=== PATIENT | female | born 1995 | race Caucasian/White ===

== ENCOUNTER → 2016-11-25 | Outpatient (CLI) | payer OTHER ==
[2016-11-25 18:23] LABS: BASO # 0.1 K/mm3 (0.0-0.2); BASO % 0.5 % (0.0-1.0); EOS # 0.2 K/mm3 (0.0-0.50); EOS % 1.7 % (0.0-3.0); LARGE UNSTAINED CELL # 0.2 K/mm3 (0.0-0.4); LARGE UNSTAINED CELL % 1.6 % (0.0-4.0); LYMPH # 2.6 K/mm3 (1.5-6.5); LYMPH % 21.4 % (24.0-44.0); MEAN CORPUSCULAR HEMOGLOBIN 29.5 pg (27.0-33.0); MEAN CORPUSCULAR HGB CONC 33.9 g/dl (32.0-36.5); MEAN CORPUSCULAR VOLUME 87.1 fl (80.0-96.0); MONO # 0.7 K/mm3 (0.0-0.8); MONO % 5.9 % (0.0-5.0); NEUTROPHILS # 7.9 K/mm3 (1.8-7.7); NEUTROPHILS % 68.9 % (36.0-66.0); PLATELET COUNT, AUTOMATED 298 k/mm3 (150-450); RED CELL DISTRIBUTION WIDTH 12.1 % (11.5-14.5); WHITE BLOOD COUNT 11.4 K/mm3 (4.0-10.0)
[2016-11-26 13:25] LABS: HBsAg Prenatal NEGATIVE (NEGATIVE)
== END ==
LOC: M SMT 13:35
PROVIDERS: ATTEND Obstetrics & Gynecology
DX: Z34.81 Encounter for supervision of other normal pregnancy, first trimester (principal)

== ENCOUNTER → 2017-01-27 | Outpatient (CLI) | payer OTHER | LOC: M SMT 15:21 | PROVIDERS: ATTEND Advanced Practice Midwife | DX: Z31.438 Encounter for other genetic testing of female for procreative management (principal) ==

== ENCOUNTER → 2017-02-10 | Outpatient (CLI) | payer OTHER ==
[~2017-02-10] MED LIST: ACET50TA PO; IBUP-1114 PO; PRENTAB9 PO
--- NOTE | 2017-02-11 04:37 | REP ---
Clinical: Anatomical evaluation. Comparison: None . Findings: Examination demonstrates a single live intrauterine in cephalic presentation. motion is identified by technologist. Placenta is noted anteriorly and grade zero without evidence for placenta previa or abruption. Amniotic fluid volume is normal. Cervix measures 5.3 cm in length and appears closed. No evidence for nuchal cord. Gestational age by LMP 18 weeks 2 days with LESLI 07/12/2017 . Gestational age by current measurements 19 weeks 2 days with LESLI 07/05/2017 . FHR equals 141 beats per minute. BPD 4.5 cm 19 weeks 3 days HC 16.2 cm 19 weeks 0 days AC 14.7 cm 20 weeks 0 days FL 2.8 cm 18 weeks 4 days HL 3.0 cm 19 weeks 5 days HC/AC ratio 1.10 Estimated weight 287 grams ( 88th percentile). Anatomical assessment demonstrates normal structures including cranium, cavum, cerebellum/posterior fossa, facial features, lungs, four-chamber heart/ventricular outflow tracts, diaphragm, stomach, cord insertion/three-vessel cord, kidneys/bladder, spine, and extremities. 2.4 mm right choroid plexus cyst noted. Impression: Single live intrauterine in cephalic presentation demonstrating appropriate interval growth. 2. A 2.4 mm right choroid plexus cyst is appreciated. The remainder of the anatomical assessment is within normal limits. Signed by Everardo Sandoval MD 02/11/2017 04:28 A
== END ==
LOC: M RAD 09:23
PROVIDERS: ATTEND Advanced Practice Midwife
DX: Z36 Encounter for antenatal screening of mother (principal); Z3A.19 19 weeks gestation of pregnancy

== ENCOUNTER → 2017-04-14 | Outpatient (CLI) | payer OTHER ==
[2017-04-14 18:26] LABS: MEAN CORPUSCULAR HEMOGLOBIN 29.9 pg (27.0-33.0); MEAN CORPUSCULAR HGB CONC 33.9 g/dl (32.0-36.5); RED CELL DISTRIBUTION WIDTH 12.8 % (11.5-14.5)
== END ==
LOC: M SMT 13:15
PROVIDERS: ATTEND Advanced Practice Midwife
DX: Z34.82 Encounter for supervision of other normal pregnancy, second trimester (principal)

== ENCOUNTER → 2017-05-08 | Outpatient (REF) | payer OTHER | LOC: M LAB REF 19:30 | PROVIDERS: ATTEND Physician Assistant | DX: J02.9 Acute pharyngitis, unspecified (principal) ==

== ENCOUNTER → 2017-06-16 | Outpatient (REF) | payer OTHER | LOC: M LAB REF 12:44 | PROVIDERS: ATTEND Advanced Practice Midwife | DX: Z34.83 Encounter for supervision of other normal pregnancy, third trimester (principal); Z3A.00 Weeks of gestation of pregnancy not specified ==

== ENCOUNTER → 2017-09-15 | Outpatient (CLI) | payer OTHER | LOC: M RAD 14:38 | DX: Z30.431 Encounter for routine checking of intrauterine contraceptive device (principal) | CPT/HCPCS: 76856 ==

== ENCOUNTER 2017-09-25 06:14 | Day surgery (SDC) | payer OTHER ==
[2017-09-25] MEDS ORDERED: NEOSTIGMINE 10 MG/10 ML VIAL (J2710) (06:15)
[2017-09-25] MEDS ORDERED: LR 1,000 ML IV ×3 (06:30→09:15)
[2017-09-25 06:50] LABS: HEMATOCRIT 38.9 % (36.0-47.0); HEMOGLOBIN 12.7 g/dl (12.0-16.0); MEAN CORPUSCULAR HEMOGLOBIN 27.5 pg (27.0-33.0); MEAN CORPUSCULAR HGB CONC 32.6 g/dl (32.0-36.5); MEAN CORPUSCULAR VOLUME 84.2 fl (80.0-96.0); PLATELET COUNT, AUTOMATED 257 10^3/uL (150-450); RED BLOOD COUNT 4.62 10^6/uL (4.00-5.40); RED CELL DISTRIBUTION WIDTH 12.8 % (11.5-14.5); WHITE BLOOD COUNT 7.6 10^3/uL (4.0-10.0)
[2017-09-25 06:55] LABS: CONTROL LINE HCG INT CTR LINE PRESENT; HCG, SERUM QUALITATIVE NEGATIVE (NEGATIVE)
[2017-09-25] MEDS ORDERED: fentaNYL 250 MCG/5 ML INJECTION (J3010) As Ordered (07:15)
[2017-09-25] MEDS ORDERED: ROCURONIUM BROMIDE 50 MG/5 ML VIAL As Ordered (07:15)
[2017-09-25] MEDS ORDERED: PROPOFOL 200 MG/20 ML VIAL As Ordered (07:15)
[2017-09-25] MEDS ORDERED: MIDAZOLAM INJ 2 MG/2 ML VIAL (J2250) As Ordered (07:15)
[2017-09-25] MEDS ORDERED: LIDOCAINE 2% INJ 100 MG/5 ML SDV (FOR ANES.) As Ordered (07:15)
[2017-09-25] MEDS ORDERED: ePHEDrine INJ 50 MG/ML VIAL As Ordered (07:21)
[2017-09-25] MEDS ORDERED: dexameTHASONE 4 MG/ML 1ML VIAL (J1100) As Ordered (07:45)
[2017-09-25] MEDS: BUPIVACAINE HCL 0.25% 30 ML VIAL As Ordered (08:02)
[2017-09-25] MEDS ORDERED: GLYCOPYRROLATE INJ 0.2 MG/ML 2 ML VIAL As Ordered ×2 (08:10→08:11)
[2017-09-25] MEDS ORDERED: NEOSTIGMINE 10 MG/10 ML VIAL (J2710) As Ordered (08:10)
[2017-09-25] MEDS ORDERED: ONDANSETRON 4MG/2ML VIAL (J2405) As Ordered (08:11)
[2017-09-25] MEDS ORDERED: KETOROLAC 60 MG/2 ML VIAL (J1885) As Ordered (08:11)
[2017-09-25] MEDS ORDERED: PERCOCET 5MG/325MG TAB PO (09:15)
[2017-09-25] MEDS ORDERED: METOCLOPRAMIDE INJ 10MG/2ML VIAL (J2765) IV (09:15)
[2017-09-25] MEDS ORDERED: fentaNYL 100 MCG/2 ML INJECTION (J3010) IV (09:15)
[2017-09-25] MEDS ORDERED: ONDANSETRON 4MG/2ML VIAL (J2405) IV (09:15)
[2017-09-25] MEDS ORDERED: MORPHINE 10 MG/ML 1ML VIAL IV (09:15)
== END 2017-09-25 10:50 | disposition home or self-care (01) ==
LOC: M SDC 06:14
DX: T83.32XA Displacement of intrauterine contraceptive device, initial encounter (principal); Y76.2 Prosthetic and other implants, materials and accessory obstetric and gynecological devices associated with adverse incidents
CPT/HCPCS: 49329

== ENCOUNTER → 2019-08-31 | Outpatient (CLI) | payer OTHER ==
[~2019-08-31] MED LIST changes: -ACET50TA PO; +MAPA500T2 PO
== END ==
LOC: M PLALAB 11:17
PROVIDERS: ATTEND Advanced Practice Midwife
DX: O36.80X0 Pregnancy with inconclusive fetal viability, not applicable or unspecified (principal)

== ENCOUNTER → 2019-09-12 | Outpatient (CLI) | payer OTHER ==
--- NOTE | 2019-09-13 02:37 | REP ---
Clinical: Dating and viability. Technique: Transabdominal first trimester obstetrical ultrasound with color Doppler evaluation. Findings: Ultrasound examination demonstrates a single live early intrauterine . CRL of 33 mm corresponds to 10 weeks 1 day gestational age with estimated date of delivery 04/08/2020. heart rate equals 164 bpm. No gross abnormalities are identified. Maternal ovaries are normal in appearance. Impression: Single live early intrauterine at 10 weeks 1 day gestational age. Complete anatomical assessment should be performed at 19-20 weeks.
== END ==
LOC: M WHC 12:49
PROVIDERS: ATTEND Advanced Practice Midwife
DX: O36.80X0 Pregnancy with inconclusive fetal viability, not applicable or unspecified (principal)

== ENCOUNTER → 2019-11-21 | Outpatient (CLI) | payer OTHER ==
--- NOTE | 2019-11-21 11:35 | REP ---
OBSTETRIC SONOGRAPHY: HISTORY: Supervision of for anatomy. FINDINGS: Scanning through the gravid uterus demonstrates a viable single intrauterine gestation in a footling breech lie. motion is observed and heart rate is recorded at 163 beats per minute. An anterior grade 0 placenta is seen without evidence of previa or abruption. Amniotic fluid is subjectively normal. Closed cervical length is 4.7 cm. No extrauterine abnormalities observed. There has been appropriate interval growth. The following anatomic structures are identified and felt to be unremarkable today: cavum, cerebellum and posterior fossa, lungs, right ventricular cardiac outflow tract views, diaphragm, left-sided stomach, abdominal wall cord insertion, three-vessel cord, kidneys and bladder, spine, upper and lower extremities. There is a small choroid plexus cyst in the right lateral ventricle. nose and lips were seen but facial profile is less than optimally seen due to position. In addition, the four-chamber heart and left ventricular outflow tract visualization was less than optimal due to position. Biometry chart: BPD 4.6 cm = 20 weeks 0 days Head circumference 17.6 cm = 20 weeks 1 day Abdominal circumference 15.1 cm = 20 weeks 3 days Femur length 3.3 cm = 20 weeks 2 days Humeral length 3.4 cm = 21 weeks 3 days HC/AC ratio normal 1.16. Cephalic index normal 0.72. Estimated weight 246 grams, 0 pounds 12 ounces, 51st percentile for 20 weeks 1 day. IMPRESSION: Viable single intrauterine gestation at 20 weeks 3 days by today's composite sonographic criteria. Expected gestational age estimate based on prior sonography is 20 weeks 1 day, LESLI by prior sonography April 08, 2020. There is appropriate interval growth. A small choroid plexus cyst is seen in the right lateral ventricle. Face and cardiac structures less than optimally visualized today due to position. Footling breech lie. Electronically Signed by Pal Morgan MD 11/21/2019 03:39 P
== END ==
LOC: M RAD 10:02
PROVIDERS: ATTEND Obstetrics & Gynecology
DX: Z34.92 Encounter for supervision of normal pregnancy, unspecified, second trimester (principal); O35.0XX0 Maternal care for (suspected) central nervous system malformation in fetus, not applicable or unspecified; Z3A.20 20 weeks gestation of pregnancy

== ENCOUNTER → 2019-11-25 | Outpatient (REF) | payer OTHER ==
[2019-11-25 13:34] LABS: HEMATOCRIT 37.5 % (36.0-47.0); HEMOGLOBIN 12.4 g/dl (12.0-15.5); MEAN CORPUSCULAR HEMOGLOBIN 29.3 pg (27.0-33.0); MEAN CORPUSCULAR HGB CONC 33.1 g/dl (32.0-36.5); MEAN CORPUSCULAR VOLUME 88.7 fl (80.0-96.0); PLATELET COUNT, AUTOMATED 234 10^3/uL (150-450); RED BLOOD COUNT 4.23 10^6/uL (4.00-5.40); WHITE BLOOD COUNT 7.4 10^3/uL (4.0-10.0)
[2019-11-25 14:27] LABS: HEPATITIS B SURFACE ANTIGEN NEGATIVE (NEGATIVE); HEPATITIS C VIRUS ABY INDEX 0.1 INDEX (<0.8); HIV 1&2 SCREEN CENTAUR NEGATIVE (NEGATIVE); RUBELLA IgG QUALITATIVE IMMUNE (IMMUNE)
[2019-11-25 23:33] LABS: CHLAMYDIA DNA AMPLIFICATION NEGATIVE (NEGATIVE); GC DNA AMPLIFICATION NEGATIVE (NEGATIVE)
== END ==
LOC: M PLALAB 09:15
PROVIDERS: ATTEND Obstetrics & Gynecology
DX: Z36.89 Encounter for other specified antenatal screening (principal); Z3A.00 Weeks of gestation of pregnancy not specified

== ENCOUNTER → 2019-12-16 | Outpatient (CLI) | payer OTHER ==
--- NOTE | 2019-12-17 08:35 | REP ---
OB ULTRASOUND: Real-time sonographic evaluation of the gravid uterus performed. There is a single living intrauterine gestation. The estimated gestational age is 23 weeks 5 days, EDC 04/08/2020. Today's measurements indicate appropriate growth. Biometry and Growth: BPD 55 mm = 22 weeks 4 days, 20th percentile HC 216 mm = 23 weeks 5 days, 47th percentile AC 204 mm = 25 weeks 0 days, 76th percentile FL 44 mm = 24 weeks 2 days, 62st percentile HC/AC ratio 1.05 within normal range 1.03 to 1.22. Estimated weight 707 grams 68th percentile. SEEN/GROSSLY UNREMARKABLE Lateral ventricles Yes Posterior fossa Yes Upper lip Yes Four-chamber heart Yes LVOT Yes RVOT Yes Stomach Yes Cord insertion Yes Three vessel cord Yes Kidneys Yes Bladder Yes Spine No Cervical length: Closed and measures 3.3 cm in length. heart rate: 152 beats per minute. position: Vertex. Placenta: Anterior and grade 1 with no previa or abruption. Amniotic fluid: Within normal limits. Previously noted cystic structure right choroid plexus is not seen on today's exam. Tiny echogenic focus in the left ventricle of heart is likely related to cordae tendinea.
== END ==
LOC: M WHC 13:33
PROVIDERS: ATTEND Advanced Practice Midwife
DX: Z34.82 Encounter for supervision of other normal pregnancy, second trimester (principal); Z36.2 Encounter for other antenatal screening follow-up; Z3A.22 22 weeks gestation of pregnancy

== ENCOUNTER 2020-04-06 07:05 | Inpatient (IN) | payer OTHER ==
[2020-04-06] MEDS ORDERED: miSOPROStol 50 MCG 1/2 TAB (S0191) ONE ×2 (17:33→23:01)
[2020-04-07] MEDS ORDERED: FENTANYL 2MCG/ML ROPIVACAINE 0.2% IN 0.9% NACL 100ML IVBAG ONE (02:47)
[2020-04-07] MEDS ORDERED: OXYTOCIN 30 UNITS IN 0.9% NaCl 500ML IV BAG (J2590) ONE (02:47)
[2020-04-07] MEDS ORDERED: ePHEDrine SULFATE 25 MG/5 ML(5MG/ML) SYRINGE ONE (04:30)
[2020-04-07] MEDS ORDERED: METHYLERGONOVINE MALEATE 0.2 MG TAB ONE ×2 (07:22→13:24)
[2020-04-07] MEDS ORDERED: IBUPROFEN 800 MG TAB ONE (09:15)
[2020-04-07] MEDS ORDERED: ACETAMINOPHEN 500 MG TAB ONE (19:18)
[2020-04-08] MEDS ORDERED: IBUPROFEN 800 MG TAB ONE (02:03)
[2020-06-03 06:49] LABS: HEMOGLOBIN 11.3 g/dl (12.0-15.5); MEAN CORPUSCULAR HEMOGLOBIN 27.6 pg (27.0-33.0); MEAN CORPUSCULAR HGB CONC 33.2 g/dl (32.0-36.5); MEAN CORPUSCULAR VOLUME 82.9 fl (80.0-96.0); PLATELET COUNT, AUTOMATED 184 10^3/uL (150-450); WHITE BLOOD COUNT 7.9 10^3/uL (4.0-10.0)
[2020-07-01 10:24] LABS: CORD GAS ABE A -9.6; CORD GAS HCO3 A 15.7 MEQ/L; CORD GAS O2 SAT A 85.8 %; CORD GAS PCO2 A 33.3 mmHg; CORD GAS PH A 7.292 UNITS; CORD GAS SBC A 16.7 MEQ/L; CORD GAS TCO2 A 16.7 MEQ/L
[2020-07-01 10:25] LABS: CORD GAS HCO3 V 20.9 MEQ/L; CORD GAS O2 SAT V 72.6 %; CORD GAS PH V 7.275 UNITS; CORD GAS PO2 V 34.1 mmHg; CORD GAS TCO2 V 22.3 MEQ/L
== END 2020-04-08 09:17 | disposition home or self-care (01) | DRG 807 ==
LOC: M LDI 07:05 → UNDOADMIN 04-07 07:05 → M LDI 04-07 07:05 → UNDODISIN 04-08 09:17
PROVIDERS: ADMIT Obstetrics & Gynecology; ATTEND Obstetrics & Gynecology
PROC: 3E0DXGC Introduction of Other Therapeutic Substance into Mouth and Pharynx, External Approach (ICD-10-PCS; 2020-04-06)
PROC: 10E0XZZ Delivery of Products of Conception, External Approach (ICD-10-PCS; principal; 2020-04-07)
DX: O66.0 Obstructed labor due to shoulder dystocia (principal); Z37.0 Single live birth; Z3A.39 39 weeks gestation of pregnancy

== ENCOUNTER → 2021-01-29 | Outpatient (REF) | payer OTHER | LOC: M LAB REF 17:29 | PROVIDERS: ATTEND Family Medicine | DX: Z12.4 Encounter for screening for malignant neoplasm of cervix (principal) | CPT/HCPCS: 87624; G0123 ==

== ENCOUNTER → 2021-05-02 | Outpatient (REF) | LOC: M LABSMTC 10:10 | PROVIDERS: ATTEND Pediatrics | DX: Z20.828 Contact with and (suspected) exposure to other viral communicable diseases (principal) ==

== ENCOUNTER 2021-06-08 15:21 | Emergency (ER) | payer OTHER ==
[2021-06-08 15:21] VITALS: BP 137/77
--- OUTSIDE RECORDS SUMMARY | 2021-06-08 15:27 | CCD ---
Author Author [facility] Organization [facility] Address Unknown Phone Unavailable Care Team Providers Care Loss Control Consultant Name Role Phone Kayla Socorro Yuliet PA-C Unavailable Unavailabl e Petrancosta, Socorro Yuliet PA-C Unavailable Unavailabl e Petrancosta, Socorro Yuliet PA-C Unavailable Unavailabl e Petrancosta, Socorro Yuliet PA-C Unavailable Unavailabl e Petrancosta, Socorro Yuliet PA-C Unavailable Unavailabl e Petrancosta, Socorro Yuliet PA-C Unavailable Unavailabl e Petrancosta, Socorro Yuliet PA-C Unavailable Unavailabl e Petrancosta, Socorro Yuliet PA-C Unavailable Unavailabl e Petrancosta, Socorro Yuliet PA-C Unavailable Unavailabl e Petrancosta, Socorro Yuliet PA-C Unavailable Unavailabl e Petrancosta, Socorro Yuliet PA-C Unavailable Unavailabl e Petrancosta, Socorro Yuliet PA-C Unavailable Unavailabl e Petrancosta, Socorro Yuliet PA-C Unavailable Unavailabl e Petrancosta, Socorro Yuliet PA-C Unavailable Unavailabl e Petrancosta, Socorro Yuliet PA-C Unavailable Unavailabl e Petrancosta, Socorro Yuliet PA-C Unavailable Unavailabl e Petrancosta, Socorro Yuliet PA-C Unavailable Unavailabl e Petrancosta, Socorro Yuliet PA-C Unavailable Unavailabl e Petrancosta, Socorro Yuliet PA-C Unavailable Unavailabl e Petrancosta, Socorro Yuliet PA-C Unavailable Unavailabl e Petrancosta, Socorro Yuliet PA-C Unavailable Unavailabl e Petrancosta, Socorro Yuliet PA-C Unavailable Unavailabl e Petrancosta, Socorro Yuliet PA-C Unavailable Unavailabl e Petrancosta, Socorro Yuliet PA-C Unavailable Unavailabl e Petrancosta, Socorro Yuliet PA-C Unavailable Unavailabl e Azam, Fernando Rivera MD Unavailable Unavailable Azam, A Nicole MYERS Unavailable Unavailable Azam, A Nicole MYERS Unavailable Unavailable Azam, Fernando Rivera MD Unavailable Unavailable Azam, Fernando Rivera MD Unavailable Unavailable Azam, Fernando Rivera MD Unavailable Unavailable Azam, Fernando Rivera MD Unavailable Unavailable Azam, Fernando Rivera MD Unavailable Unavailable Azam, Fernando Rivera MD Unavailable Unavailable Azam, A Nicole MYERS Unavailable Unavailable Azam, A Nicole MYERS Unavailable Unavailable Azam, Fernando Rivera MD Unavailable Unavailable Azam, Fernando Rivera MD Unavailable Unavailable Azam, Fernando Rivera MD Unavailable Unavailable Azam, Fernando Rivera MD Unavailable Unavailable Azam, Fernando Rivera MD Unavailable Unavailable Azam, Fernando Rivera MD Unavailable Unavailable Azam, Fernando Rivera MD Unavailable Unavailable Azam, Fernando Rivera MD Unavailable Unavailable Azam, Fernando Rivera MD Unavailable Unavailable Azam, Fernando Rivera MD Unavailable Unavailable Azam, Fernando Rivera MD Unavailable Unavailable Azam, Fernando Rivera MD Unavailable Unavailable Azam, Fernando Rivera MD Unavailable Unavailable Azam, Fernando Rivera MD Unavailable Unavailable Azam, Fernando Rivera MD Unavailable Unavailable Azam, A Nicole MYERS Unavailable Unavailable Azam, A Nicole MYERS Unavailable Unavailable Azam, A Nicole MYERS Unavailable Unavailable Azam, A Nicole MYERS Unavailable Unavailable Azam, A Nicole MYERS Unavailable Unavailable Azam, A Nicole MYERS Unavailable Unavailable Azam, A Nicole MYERS Unavailable Unavailable Azam, A Nicole MYERS Unavailable Unavailable Azam, A Nicole MYERS Unavailable Unavailable Azam, A Nicole MYERS Unavailable Unavailable Azam, Fernando Rivera MD Unavailable Unavailable Azam, Fernando Rivera MD Unavailable Unavailable Azam, Fernando Rivera MD Unavailable Unavailable Azam, Fernando Rivera MD Unavailable Unavailable Azam, Fernando Rivera MD Unavailable Unavailable Azam, Fernando Rivera MD Unavailable Unavailable Azam, Fernando Rivear MD Unavailable Unavailable Azam, Fernando Rivera MD Unavailable Unavailable Azam, Fernando Rivera MD Unavailable Unavailable Azam, Fernando Rivera MD Unavailable Unavailable Azam, Fernando Rivera MD Unavailable Unavailable Azam, Fernando Rivera MD Unavailable Unavailable Azam, Fernando Rivera MD Unavailable Unavailable Azam, Fernando Rivera MD Unavailable Unavailable Azam, Fernando Rivera MD Unavailable Unavailable Azam, Fernando Rivera MD Unavailable Unavailable Azam, Fernando Rivera MD Unavailable Unavailable Azam, Fernando Rivera MD Unavailable Unavailable Azam, Fernando Rivera MD Unavailable Unavailable Azam, Fernando Rivera MD Unavailable Unavailable Azam, Fernando Rivera MD Unavailable Unavailable Azam, Fernando Rivera MD Unavailable Unavailable Azam, Fernando Rivera MD Unavailable Unavailable Azam, Fernando Rivera MD Unavailable Unavailable Azam, Fernando Rivera MD Unavailable Unavailable Azam, Fernando Rivera MD Unavailable Unavailable Azam, Fernando Rivera MD Unavailable Unavailable Azam, Fernando Rivera MD Unavailable Unavailable Azam, Fernando Rivera MD Unavailable Unavailable Azam, Fernando Rivera MD Unavailable Unavailable Azam, Fernando Rivera MD Unavailable Unavailable Azam, Fernando Rivera MD Unavailable Unavailable Azam, Fernando Rivera MD Unavailable Unavailable Azam, Fernando Rivera MD Unavailable Unavailable Azam, Fernando Rivera MD Unavailable Unavailable Azam, Fernando Rivera MD Unavailable Unavailable Azam, Fernando Rivera MD Unavailable Unavailable Azam, Fernando Rivera MD Unavailable Unavailable Azam, Fernando Rivera MD Unavailable Unavailable Azam, Fernando Rivera MD Unavailable Unavailable Azam, Fernando Rivera MD Unavailable Unavailable Azam, Fernando Rivera MD Unavailable Unavailable Azam, Fernando Rivera MD Unavailable Unavailable Azam, Fernanod Rivera MD Unavailable Unavailable Azam, Fernando Rivera MD Unavailable Unavailable Azam, Fernando Rivera MD Unavailable Unavailable Scordo, M Chuyita PA Unavailable Unavailable Scordo, M Chuyita PA Unavailable Unavailable Scordo, M Chuyita PA Unavailable Unavailable Scordo, M Chuyita PA Unavailable Unavailable Scordo, M Chuyita PA Unavailable Unavailable Scordo, M Chuyita PA Unavailable Unavailable Scordo, M Chuyita PA Unavailable Unavailable Scordo, M Chuyita PA Unavailable Unavailable Scordo, M Chuyita PA Unavailable Unavailable Scordo, M Chuyita PA Unavailable Unavailable Scordo, M Chuyita PA Unavailable Unavailable Scordo, M Chuyita PA Unavailable Unavailable Scordo, M Chuyita PA Unavailable Unavailable Scordo, M Chuyita PA Unavailable Unavailable Scordo, M Chuyita PA Unavailable Unavailable Scordo, M Chuyita PA Unavailable Unavailable Scordo, M Chuyita PA Unavailable Unavailable Scordo, M Chuyita PA Unavailable Unavailable Scordo, M Chuyita PA Unavailable Unavailable Scordo, M Chuyita PA Unavailable Unavailable Scordo, M Chuyita PA Unavailable Unavailable Scordo, M Chuyita PA Unavailable Unavailable Scordo, M Chuyita PA Unavailable Unavailable Scordo, M Chuyita PA Unavailable Unavailable Scordo, M Chuyita PA Unavailable Unavailable Scordo, M Chuyita PA Unavailable Unavailable Scordo, M Chuyita PA Unavailable Unavailable Scordo, M Chuyita PA Unavailable Unavailable Scordo, M Chuyita PA Unavailable Unavailable Scordo, M Chuyita PA Unavailable Unavailable Scordo, M Chuyita PA Unavailable Unavailable Scordo, M Chuyita PA Unavailable Unavailable Scordo, M Chuyita PA Unavailable Unavailable Scordo, M Chuyita PA Unavailable Unavailable Scordo, M Chuyita PA Unavailable Unavailable Scordo, M Chuyita PA Unavailable Unavailable Scordo, M Chuyita PA Unavailable Unavailable Scordo, M Chuyita PA Unavailable Unavailable Scordo, M Chuyita PA Unavailable Unavailable Scordo, M Chuyita PA Unavailable Unavailable Scordo, M Chuyita PA Unavailable Unavailable Scordo, M Chuyita PA Unavailable Unavailable Scordo, M Chuyita PA Unavailable Unavailable Scordo, M Chuyita PA Unavailable Unavailable Scordo, M Chuyita PA Unavailable Unavailable Scordo, M Chuyita PA Unavailable Unavailable Scordo, M Chuyita PA Unavailable Unavailable Re-disclosure Warning The records that you are about to access may contain information from federally-assisted alcohol or drug abuse programs. If such information is present, then the following federally mandated warning applies: This information has been disclosed to you from records protected by federal confidentiality rules (42 CFR part 2). The federal rules prohibit you from making any further disclosure of this information unless further disclosure is expressly permitted by the written consent of the person to whom it pertains or as otherwise permitted by 42 CFR part 2. A general authorization for the release of medical or other information is NOT sufficient for this purpose. The Federal rules restrict any use of the information to criminally investigate or prosecute any alcohol or drug abuse patient.The records that you are about to access may contain highly sensitive health information, the redisclosure of which is protected by Article 27-F of the [facility] Public Health law. If you continue you may have access to information: Regarding HIV / AIDS; Provided by facilities licensed or operated by the [facility] Office of Mental Health; or Provided by the [facility] Office for People With Developmental Disabilities. If such information is present, then the following [facility] mandated warning applies: This information has been disclosed to you from confidential records which are protected by state law. State law prohibits you from making any further disclosure of this information without the specific written consent of the person to whom it pertains, or as otherwise permitted by law. Any unauthorized further disclosure in violation of state law may result in a fine or mcfp sentence or both. A general authorization for the release of medical or other information is NOT sufficient authorization for further disc losure. Allergies and Adverse Reactions Type Description Substance Reaction Status Data Source(s ) Allergy to substance Allergy to substance Allergy to substance [facility] ([facility]) Family History Family Member Name Family Member Gender Family Member Status Date o f Status Description Data Source(s) Unknown Unknown Problem [facility] Unknown Unknown Problem [facility] Encounters Encounter Providers Location Date Indications Data Source(s ) Outpatient Attender: Nicole Nascimento MD Main Office 03/29/2021 10:15:0 0 AM EDT [facility] ([facility] Outpatient Attender: Nicole Nascimento MD Main Office 01/29/2021 09:30:0 0 AM EDT [facility] ([facility] Chuyita Jamison PA-C: [address] [place] [id number], Ph. Attender: Chuyita BLANCA [facility] 09/19/2020 12:00:00 AM EST [place] ([facility]) Outpatient Attender: Yuliet Garza PA-C Main Office 06/18/2020 02:30:00 PM EDT MED[facility] ([facility] ( ESTOB) enter Est OB [address] [place] [address] 06/06/2020 12:00:00 AM EDT eCW1 (Count includes the [facility]) Immunizations Vaccine Date Status Description Data Source(s) COVID-19 VACCINE Moderna 11/14/2020 12:00:00 AM EDT completed [facility] Vaccine Series Complete: YESThis Data wa s Submitted to [facility] Via [employer]. COVID-19 VACCINE Moderna 10/17/2020 12:00:00 AM EST completed [facility] Vaccine Series Complete: NOThis Data was Submitted to [facility] Via [employer]. New in 2012. IIV4 06/18/2020 02:46:00 PM EDT completed [facility] ([facility] Medications Medication Brand Name Start Date Product Form Dose Route Admi nistrative Instructions Pharmacy Instructions Status Indications Reaction Description Data Source(s) 0.18/0.215/0.25 mg-35 mcg (28) 02/15/2021 12:00:00 AM EDT ta blet 28 TAKE ONE TABLET BY MOUTH EVERY DAY TAKE ONE TABLET BY MOUTH EVERY DAY SOLD: 05/11/2021 [facility] 0.18/0.215/0.25 mg-35 mcg (28) 02/15/2021 12:00:00 AM EDT ta blet 28 TAKE ONE TABLET BY MOUTH EVERY DAY TAKE ONE TABLET BY MOUTH EVERY DAY SOLD: 02/15/2021 [facility] 0.18/0.215/0.25 mg-35 mcg (28) 02/15/2021 12:00:00 AM EDT ta blet 28 TAKE ONE TABLET BY MOUTH EVERY DAY TAKE ONE TABLET BY MOUTH EVERY DAY SOLD: 03/15/2021 [facility] 0.18/0.215/0.25 mg-35 mcg (28) 02/15/2021 12:00:00 AM EDT ta blet 28 TAKE ONE TABLET BY MOUTH EVERY DAY TAKE ONE TABLET BY MOUTH EVERY DAY SOLD: 04/13/2021 [facility] 150 mg 01/29/2021 12:00:00 AM EDT tablet 2 TAKE 1 TABLET BY MOUTH EVERY 3 DAYS NEEDED TAKE 1 TABLET BY MOUTH EVERY 3 DAYS NEEDED SOLD: 01/29/2021 [facility] Norgestim-Eth Estrad Triphasic Norgestim-Eth Estrad Triphasi c 01/29/2021 12:00:00 AM EDT ORAL active M EDENT ([facility] Fluconazole 150 MG Oral Tablet Fluconazole 01/29/2021 12:00:00 AM EDT ORAL completed [facility] ([facility] 0.35 mg 06/06/2020 12:00:00 AM EDT tablet 28 TAKE ONE TABLET BY MOUTH EVERY DAY TAKE ONE TABLET BY MOUTH EVERY DAY SOLD: 06/06/2020 [facility] Valery-BE 0.35 MG Valery-BE 0.35 MG 06/06/2020 12:00:00 AM EDT 1.0 { tablet} active Valery-BE 0.35 MG eCW1 ([facility]) 0.35 mg 06/06/2020 12:00:00 AM EDT tablet 28 TAKE ONE TABLET BY MOUTH EVERY DAY TAKE ONE TABLET BY MOUTH EVERY DAY SOLD: 11/22/2020 [facility] 0.35 mg 06/06/2020 12:00:00 AM EDT tablet 28 TAKE ONE TABLET BY MOUTH EVERY DAY TAKE ONE TABLET BY MOUTH EVERY DAY SOLD: 10/25/2020 [facility] 0.35 mg 06/06/2020 12:00:00 AM EDT tablet 28 TAKE ONE TABLET BY MOUTH EVERY DAY TAKE ONE TABLET BY MOUTH EVERY DAY SOLD: 08/30/2020 [facility] Valery-BE 0.35 MG Valery-BE 0.35 MG 06/06/2020 12:00:00 AM EDT 1.0 { tablet} active Valery-BE 0.35 MG eCW1 ([facility]) 0.35 mg 06/06/2020 12:00:00 AM EDT tablet 28 TAKE ONE TABLET BY MOUTH EVERY DAY TAKE ONE TABLET BY MOUTH EVERY DAY SOLD: 09/27/2020 [facility] 0.35 mg 06/06/2020 12:00:00 AM EDT tablet 28 TAKE ONE TABLET BY MOUTH EVERY DAY TAKE ONE TABLET BY MOUTH EVERY DAY SOLD: 01/18/2021 [facility] 0.35 mg 06/06/2020 12:00:00 AM EDT tablet 28 TAKE ONE TABLET BY MOUTH EVERY DAY TAKE ONE TABLET BY MOUTH EVERY DAY SOLD: 12/20/2020 [facility] 0.35 mg 06/06/2020 12:00:00 AM EDT tablet 28 TAKE ONE TABLET BY MOUTH EVERY DAY TAKE ONE TABLET BY MOUTH EVERY DAY SOLD: 07/05/2020 [facility] 0.35 mg 06/06/2020 12:00:00 AM EDT tablet 28 TAKE ONE TABLET BY MOUTH EVERY DAY TAKE ONE TABLET BY MOUTH EVERY DAY SOLD: 08/02/2020 [facility] Valery-BE 0.35 MG Valery-BE 0.35 MG 06/06/2020 12:00:00 AM EDT 1.0 { tablet} active Valery-BE 0.35 MG eCW1 ([facility]) Insurance Providers Payer name Policy type / Coverage type Policy ID Covered constitution party ID Covered constitution party's relationship to patterson Policy Patterson Plan Information [facility] [id number] SP [id number] [facility] [id number] SP [id number] [facility] ([facility]) 00 [id number] Self [id number] [facility] ([facility]) 00 [id number] Self [id number] [facility] ([facility]) 00 [id number] Self [id number] [facility] ([facility]) 00 [id number] Self [id number] [facility] Commercial [id number] Self [id number] [facility] O [id number] S [id number] [facility] DIST PHYS H O [id number] S [id number] [facility] TH [id number] SP [id number] [facility] [id number] SP [id number] [facility] [id number] [facility] [id number] Problems, Conditions, and Diagnoses No Information Surgeries/Procedures Procedure Description Date Indications Data Source(s) OFFICE OUTPATIENT VISIT 10 MINUTES 03/29/2021 12:00:00 AM EDT [facility] ([facility] OFFICE OUTPATIENT VISIT 15 MINUTES 01/29/2021 12:00:00 AM EDT [facility] ([facility] PERIODIC PREVENTIVE MED EST PATIENT 18-39 YRS 01/30/20 12:00:00 AM EDT [facility] ([facility] Results ID Date Data Source [id number] 01/29/2021 10:19:00 AM EDT [facility] ([facility] Name Value Range Interpretation Code Description Data Beryl rce(s) Supporting Document(s) Cytology Cervical or vaginal smear or scraping study Laboratory [place] t result [facility] ([facility] Addendum 1 Entered: 02/06/2021-1201 The HPV test is negative for high risk types, test performed at [facility] [address]. 02/06/20211200 Addendum Signed____ RICCO ROBERSON (ASCP) 02/06/2021 1206 SPECIMEN ADEQUACY: Satisfactory for evaluation CATEGORIZATION: Negative for Intraepithelial Lesion or Malignancy Infection: Reactive Changes: SQUAMOUS CELL: GLANDULAR CELL: COMMENTS: HPV test submitted. The cervical PAP smear is a screening test. Both false positive and false negative results occur. A negative PAP smear does not preclude dysplasia or malignancy. Clinical correlation is required in every case. Further diagnostic procedures may be clinically indicated even if a PAP smear is interpreted as within normal limits. 01/30/2021 - [address] (ASCP) 01/30/2021 1126 ID Date Data Source [id number] 01/29/2021 10:00:00 AM EDT [facility] ([facility] Name Value Range Interpretation Code Description Data Beryl rce(s) Supporting Document(s) HPV Screen (High Risk Only) Laboratory test result [facility] ([facility] This nucleic acid amplification test det ects fourteen high- risk HPV types (16,18,31,33,35,39,45,51,52,56,58,59,66,68) without differentiation. Performed at: [facility] [place] [id number] Plumber Assistant: Bouchra Metz MD, Phone: [phone] ID Date Data Source [id number] 01/16/2021 12:00:00 AM EDT [facility] Name Value Range Interpretation Code Description Data Beryl rce(s) Supporting Document(s) SARS-CoV2 Rapid Antigen Negative [facility] This lab was ordered by [facility] and reported by [facility]. ID Date Data Source [id number] 09/19/2020 10:37:00 AM EST [place] ([facility]) Name Value Range Interpretation Code Description Data Beryl rce(s) Supporting Document(s) sars-cov-2 negative negative Sars-cov-2 [place] ([facility]) ID Date Data Source [id number] 09/19/2020 10:37:00 AM EST [facility] Name Value Range Interpretation Code Description Data Beryl rce(s) Supporting Document(s) SARS coronavirus 2 RdRp gene [Presence] in Respiratory specimen by KALYAN with probe detection Not detected [facility] This lab was ordered by [facility] and reported by [facility]. Procedure Social History Code Duration Value Status Description Data Source(s ) Smoking 03/29/2021 12:00:00 AM EDT Patient has never smoked co mpleted Patient has never smoked [facility] ([facility] Smoking 06/06/2020 12:00:00 AM EDT Never Smoker completed Never S moker eCW1 ([facility]) Smoking 06/06/2020 12:00:00 AM EDT Never Smoker completed Never S moker eCW1 ([facility]) Smoking 06/06/2020 12:00:00 AM EDT Never Smoker completed Never S moker eCW1 ([facility]) Vital Signs ID Date Data Source UNK Name Value Range Interpretation Code Description Data Source(s) Body mass index (BMI) [Ratio] 25.9 kg/m2 25.9 k g/m2 [facility] ([facility] Systolic blood pressure 116 mm[Hg] 116 mm[Hg] M EDENT ([facility] Diastolic blood pressure 78 mm[Hg] 78 mm[Hg] [facility] ([facility] Heart rate 78 /min 78 /min [facility] ([facility] Body temperature 97.0 [degF] 97.0 [degF] [facility] ([facility] Respiratory rate 16 /min 16 /min [facility] ( [facility] Body height 63 [in_i] 63 [in_i] [facility] ([facility] 5'3" Body weight 146.38 [lb_av] 146.38 [lb_av] MEDEN T ([facility] Oxygen saturation in Arterial blood by Pulse oximetry 98 % 98 % [facility] ([facility] [place] body weight 115 [lb_av] 115 [lb_av] MEDEN T ([facility] Heart rate 82 /min 82 /min [facility] ([facility] Body temperature 97.1 [degF] 97.1 [degF] [facility] ([facility] Respiratory rate 17 /min 17 /min [facility] ( [facility] Body height 63 [in_i] 63 [in_i] [facility] ([facility] 5'3" Systolic blood pressure 115 mm[Hg] 115 mm[Hg] M EDENT ([facility] Diastolic blood pressure 66 mm[Hg] 66 mm[Hg] [facility] ([facility] Body weight 145.12 [lb_av] 145.12 [lb_av] MEDEN T ([facility] Oxygen saturation in Arterial blood by Pulse oximetry 100 % 100 % [facility] ([facility] [place] body weight 115 [lb_av] 115 [lb_av] MEDEN T ([facility] Body mass index (BMI) [Ratio] 25.7 kg/m2 25.7 k g/m2 [facility] ([facility] Systolic blood pressure 110 mm[Hg] 110 mm[Hg] M EDENT ([facility] Diastolic blood pressure 62 mm[Hg] 62 mm[Hg] [facility] ([facility] Body height 63 [in_i] 63 [in_i] [facility] ([facility] 5'3" Body weight 148.25 [lb_av] 148.25 [lb_av] MEDEN T ([facility] Oxygen saturation in Arterial blood by Pulse oximetry 99 % 99 % [facility] ([facility] Body mass index (BMI) [Ratio] 26.3 kg/m2 26.3 k g/m2 [facility] ([facility] Heart rate 82 /min 82 /min [facility] ([facility] Body temperature 97.3 [degF] 97.3 [degF] [facility] ([facility] Respiratory rate 14 /min 14 /min [facility] ( [facility] [place] body weight 115 [lb_av] 115 [lb_av] MEDEN T ([facility] Body weight 142 [lb_av] 142 [lb_av] eCW1 ([facility]) Body height 63 [in_i] 63 [in_i] W1 ([facility]) Body mass index (BMI) [Ratio] 25.15 kg/m2 25.15 kg/m2 eCW1 ([facility]) Systolic blood pressure 122 mm[Hg] 122 mm[Hg] e CW1 ([facility]) Diastolic blood pressure 70 mm[Hg] 70 mm[Hg] eCW1 ([facility]) Patient Treatment Plan of Care Planned Activity Planned Date Details Description Data Source (s) Valery-BE 0.35 MG 06/06/2020 12:00:00 AM EDT eCW1 ([facility]) Valery-BE 0.35 MG 06/06/2020 12:00:00 AM EDT eCW1 ([facility]) Valery-BE 0.35 MG 06/06/2020 12:00:00 AM EDT eCW1 ([facility])
--- OUTSIDE RECORDS SUMMARY | 2021-06-08 15:27 | CCD | Continuity of Care Document ---
Author Author Charisse SUBRAMANIAN M.D. Organization Unknown Address [address] [place] [address] Phone [phone] Problems Description No Information Available Social History Type Date Description Comments Sex Unknown Tobacco Use Start: Unknown Never Used Smokeless Tobacco ETOH Use Denies alcohol use Tobacco Use Start: Unknown Patient has never smoked Recreational Drug Use Denies Drug Use Smoking Status Reviewed: 03/29/21 Patient has never smoked Exercise Type/Frequency Does not exercise Tattoo/Piercing Tattoo 2 Tattoo/Piercing Pierced ears Sun Exposure Uses sunscreen Sun Exposure Does not use tanning beds Seat Belt/Car Seat Always uses seat belt Bike Helmet Always Smoke Alarms Yes Smoke Alarms Carbon Monoxide Detector: Yes Allergies, Adverse Reactions, Alerts Active Allergies Reaction Severity Comments Date NKDA 06/18/2020 seasonal 06/18/2020 Medications Active Medications SIG Qnty Indications Ordering Provide r Date Norgestim-Eth Estrad Triphasic 0.18/0.215/0.25 mg-35 mcg Tablets one po qd 84tabs Nicole Subramanian M.D. 01/29/2021 27-1mg Tablets one p o qd Unknown History Medications Fluconazole 150mg Tablets take on by mouth every 3 days as needed 2tabs B37.3 Nicole Subramanian M.D. 01/29/2021 - 03/29/2021 Immunizations CPT Code Status Date Vaccine Lot # [id number] Given 06/18/2020 Influenza Virus Vaccine, Quadrivalent,age 3 and up,multidose vial 43476 Given 02/03/2020 Boostrix (Tdap) Tetnus, Diphtheria Toxoids & Acellular Pertussis Vital Signs Date Vital Result Comment 03/29/2021 10:19am BP Systolic 116 mmHg BP Diastolic 78 mmHg Heart Rate 78 /min Body Temperature 97.0 F Respiratory Rate 16 /min Height 63 inches 5'3" Weight 146.38 lb O2 % BldC Oximetry 98 % Peak Expiratory Flow Rate 383 Estimated Peak Flow Rate [place] Body Weight 115 lb BMI (Body Mass Index) 25.9 kg/m2 01/29/2021 9:32am BP Systolic 115 mmHg BP Diastolic 66 mmHg Heart Rate 82 /min Body Temperature 97.1 F Respiratory Rate 17 /min Height 63 inches 5'3" Weight 145.12 lb O2 % BldC Oximetry 100 % Peak Expiratory Flow Rate 383 Estimated Peak Flow Rate [place] Body Weight 115 lb BMI (Body Mass Index) 25.7 kg/m2 Results Test Acquired Date Facility Test Result H/L Range Note Laboratory test finding 01/29/2021 [facility] [phone] Pap Request For Service (SEE NOTE) 1 Laboratory test finding 01/29/2021 [place] [address] [phone] HPV Screen (High Risk Only) Negative Normal Nega tive 2 1 Addendum 1 Entered: 021-1201 The HPV test is negative for high risk types, test performed at [facility] [address]. 02/06/20211200 Addendum Signed____ RICCO ROBERSON CT (ASCP) 02/06/2021 1206 SPECIMEN ADEQUACY: Satisfactory for [...] smear is interpreted as within normal limits. 01/30/20211046 Signed RICCO ROBERSON CT (ASCP) 01/30/2021 1126 2 This nucleic acid amplificat ion test detects fourteen high- risk HPV types (16,18,31,33,35,39,45,51,52,56,58,59,66,68) without differentiation. Performed at: RN - [facility] [address] [id number] Pediatric Dermatologist: Bouchra Metz MD, Phone: [phone] Procedures Date Code Description Status 03/29/2021 34881 Office/Outpatient Established SF MDM 10-19 Min Completed 01/29/2021 75032 Preventive Medicine 18-39 Years, Est. Completed 01/29/2021 42302 Office/Outpatient Established Lo w MDM 20-29 Min Completed Medical Devices Description No Information Available Encounters Type Date Location Provider Dx Diagnosis Office Visit 03/29/2021 10:15a Main Office Nicole Subramanian M.D. B 85.2 Pediculosis, unspecified Office Visit 01/29/2021 9:30a Main Office Nicole Subramanian M.D. 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 01/29/2021 N60.42 Mammary duct ectasia of left hernán ast Nicole Subramanian M.D. 01/29/2021 Z00.00 Encounter for genera l adult medical examination without abnormal findings Nicole Subramanian M.D. 01/29/2021 B37.3 Candidiasis of vulva and vagina Nicole Subramanian M.D. Plan of Treatment 03/29/2021 - Nicole Subramanian M.D.* B85.2 Pediculosis, unspecified* Comments: * cleared to return to work. Functional Status Functional Condition Comment Date Status Soft contacts Active Independent with all ADL's Activ e Glasses Active Mental Status Mental Condition Comment Date Status None Active Referrals Description No Information Available
--- OUTSIDE RECORDS SUMMARY | 2021-06-08 15:27 | CCD | Continuity of Care Document ---
Author Author Charisse SUBRAMANIAN M.D. Organization Unknown Address [address] [place] [address] Phone [phone] Problems Description No Information Available Social History [...] CPT Code Status Date Vaccine Lot # [id number] Given 06/18/2020 Influenza Virus Vaccine, Quadrivalent,age 3 and up,multidose vial 40411 Given 02/03/2020 Boostrix (Tdap) Tetnus, Diphtheria Toxoids & Acellular Pertussis Vital Signs Date Vital Result Comment 03/29/2021 10:19am BP Systolic 116 mmHg BP Diastolic 78 mmHg Heart Rate 78 /min Body Temperature 97.0 F Respiratory Rate 16 /min Height 63 inches 5'3" Weight 146.38 lb O2 % BldC Oximetry 98 % Peak Expiratory Flow Rate 383 Estimated Peak Flow Rate [place] Body Weight 115 lb BMI (Body Mass Index) 25.9 kg/m2 01/29/2021 9:32am BP Systolic 115 mmHg BP Diastolic 66 mmHg Heart Rate 82 /min Body Temperature 97.1 F Respiratory Rate 17 /min Height 63 inches 5'3" Weight 145.12 lb O2 % BldC Oximetry 100 % Peak Expiratory Flow Rate 383 Estimated Peak Flow Rate [place] Body Weight 115 lb BMI (Body Mass Index) 25.7 kg/m2 Results Test Acquired Date Facility Test Result H/L Range Note Laboratory test finding 01/29/2021 [facility] [phone] Pap Request For Service (SEE NOTE) 1 Laboratory test finding 01/29/2021 [place] [address] [phone] HPV Screen (High Risk Only) Negative Normal Nega tive 2 1 Addendum 1 Entered: 021-1201 The HPV test is negative for high risk types, test performed at [facility] [address]. 02/06/20211200 Addendum Signed____ RICCO ROBERSON CT (ASCP) [...] interpreted as within normal limits. 01/30/20211046 Signed DARICCO Sharron CT (ASCP) 01/30/2021 1126 2 This nucleic acid amplificat ion test detects fourteen high- risk HPV types (16,18,31,33,35,39,45,51,52,56,58,59,66,68) without differentiation. Performed at: RN - [facility] [address] [id number] Grain Cleaner And Transfer Operator: Bouchra Metz MD, Phone: [phone] Procedures Date Code Description Status 01/29/2021 77190 Preventive Medicine 18-39 Years, Est. Completed 01/29/2021 54104 Office/Outpatient Established Lo w MDM 20-29 Min Completed Medical Devices Description No Information Available Encounters Type Date Location Provider Dx Diagnosis Office Visit 01/29/2021 9:30a Main Office Nicole Subramanian M.D. 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 01/29/2021 Z00.00 Encounter for genera l adult medical examination without abnormal findings Nicole Subramanian M.D. 01/29/2021 B37.3 Candidiasis of vulva and vagina Nicole Subramanian M.D. Plan of Treatment No Information Available Functional Status Functional Condition Comment Date Status Soft contacts Active Independent with all ADL's Activ e Glasses Active Mental Status Mental Condition Comment Date Status None Active Referrals Description No Information Available
[2021-06-08 17:09] LABS: HEMATOCRIT 38.7 % (36.0-47.0); HEMOGLOBIN 12.9 g/dl (12.0-15.5); MEAN CORPUSCULAR HEMOGLOBIN 29.1 pg (27.0-33.0); MEAN CORPUSCULAR HGB CONC 33.3 g/dl (32.0-36.5); MEAN CORPUSCULAR VOLUME 87.2 fl (80.0-96.0); PLATELET COUNT, AUTOMATED 331 10^3/uL (150-450); RED BLOOD COUNT 4.44 10^6/uL (4.00-5.40)
--- OUTSIDE RECORDS SUMMARY | 2021-06-08 17:58 | CCD ---
Author Author [facility] Organization [facility] Address Unknown Phone Unavailable Care Team Providers Care Quality Assurance Assessor Name Role Phone Kayla Itasca Yuliet PA-C Unavailable Unavailabl e Petrancosta, Itasca Yuliet PA-C Unavailable Unavailabl e Petrancosta, Itasca Yuliet PA-C Unavailable Unavailabl e Petrancosta, Itasca Uyliet PA-C Unavailable Unavailabl e Petrancosta, Itasca Yuliet PA-C Unavailable Unavailabl e Petrancosta, Itasca Yuliet PA-C Unavailable Unavailabl e Petrancosta, Itasca Yuliet PA-C Unavailable Unavailabl e Petrancosta, Itasca Yuliet PA-C Unavailable Unavailabl e Petrancosta, Itasca Yuliet PA-C Unavailable Unavailabl e Petrancosta, Itasca Yuliet PA-C Unavailable Unavailabl e Petrancosta, Itasca Yuliet PA-C Unavailable Unavailabl e Petrancosta, Itasca Yuliet PA-C Unavailable Unavailabl e Petrancosta, Itasca Yuliet PA-C Unavailable Unavailabl e Petrancosta, Itasca Yuliet PA-C Unavailable Unavailabl e Petrancosta, Itasca Yuliet PA-C Unavailable Unavailabl e Petrancosta, Itasca Yuliet PA-C Unavailable Unavailabl e Petrancosta, Itasca Yuliet PA-C Unavailable Unavailabl e Petrancosta, Itasca Yuliet PA-C Unavailable Unavailabl e Petrancosta, Itasca Yuliet PA-C Unavailable Unavailabl e Petrancosta, Itasca Yuliet PA-C Unavailable Unavailabl e Petrancosta, Itasca Yuliet PA-C Unavailable Unavailabl e Petrancosta, Itasca Yuliet PA-C Unavailable Unavailabl e Petrancosta, Itasca Yuliet PA-C Unavailable Unavailabl e Petrancosta, Itasca Yuliet PA-C Unavailable Unavailabl e Petrancosta, Itasca Yuliet PA-C Unavailable Unavailabl e Azam, Fernando [...] Azam, Fernando Rivera MD Unavailable Unavailable Azam, Frenando Rivera MD Unavailable Unavailable Azam, Fernando Rivera [...] M Chuyita PA Unavailable Unavailable Scordo, M Chyuita PA Unavailable Unavailable Scordo, M Chuyita PA [...] is protected by Article 27-F of the [facility] Public Health law. If you continue you may have access to information: Regarding HIV / AIDS; Provided by facilities licensed or operated by the [facility] Office of Mental Health; or Provided by the [facility] Office for People With Developmental Disabilities. If such information is present, then the following [facility] mandated warning applies: This information has been [...] law may result in a fine or correction sentence or both. A general authorization for [...] Description Data Source(s) Unknown Unknown Problem [facility] ([facility] Unknown Unknown Problem [facility] Encounters Encounter Providers Location Date Indications Data Source(s ) Outpatient Attender: Nicole Nascimento MD Main Office 03/29/2021 10:15:0 0 AM EDT [facility] ([facility] Outpatient Attender: Nicole Nascimento MD Main Office 01/29/2021 09:30:0 0 AM EDT [facility] ([facility] Chuyita Jamison PA-C: [address] [place] [address], Ph. Attender: Chuyita BLANCA [facility] Medical 09/19/2020 12:00:00 AM EST [facility] ([facility]) Outpatient Attender: Yuliet Garza PA-C Main Office 06/18/2020 02:30:00 PM EDT [facility] ([facility] ( ESTOB) enter Est OB [address] [place] [address] 06/06/2020 12:00:00 AM EDT eCW1 ([facility]) Immunizations Vaccine Date Status Description Data Source(s) COVID-19 VACCINE Moderna 11/14/2020 12:00:00 AM EDT completed [facility] Vaccine Series Complete: YESThis Data wa s Submitted to [facility] Via [id number]. COVID-19 VACCINE Moderna 10/17/2020 12:00:00 AM EST completed [facility] Vaccine Series Complete: NOThis Data was Submitted to [facility] Via [id number]. New in 2012. IIV4 06/18/2020 02:46:00 PM [...] { tablet} active Valery-BE 0.35 MG eCW1 ([facility]) 0.35 mg 06/06/2020 12:00:00 AM EDT tablet [...] { tablet} active Valery-BE 0.35 MG eCW1 ([facility]) 0.35 mg 06/06/2020 12:00:00 AM EDT tablet [...] { tablet} active Valery-BE 0.35 MG eCW1 ([facility]) Insurance Providers Payer name Policy type / Coverage type Policy ID Covered constitution party ID Covered constitution party's relationship to patterson Policy Patterson Plan Information [facility] [id number] SP [id number] [facility] [id number] SP [id number] [facility] ([facility]) 00 [id number] Self [id number] [facility] ([facility]) 00 [id number] Self [id number] [facility] ([facility]) 00 [id number] Self [id number] [facility] ([facility]) 00 [id number] [facility] Commercial [id number] Self [id number] [facility] O [id number] S [id number] [facility] DIST PHYS H O [id number] S [id number] [facility] TH [id number] SP [id number] [facility] [id number] SP [id number] [facility] [id number] 400 [facility] [id number] Problems, Conditions, and Diagnoses No Information Surgeries/Procedures Procedure Description Date Indications Data Source(s) OFFICE OUTPATIENT VISIT 10 MINUTES 03/29/2021 12:00:00 AM EDT [facility] ([facility] OFFICE OUTPATIENT VISIT 15 MINUTES 01/29/2021 12:00:00 AM EDT [facility] ([facility] PERIODIC PREVENTIVE MED EST PATIENT 18-39 YRS 01/30/20 12:00:00 AM EDT [facility] ([facility] Results ID Date Data Source [id number] 01/29/2021 10:19:00 AM EDT [facility] ([facility] Name Value Range Interpretation Code Description Data Beryl rce(s) Supporting Document(s) Cytology Cervical or vaginal smear or scraping study Laboratory [place] t result [facility] ([facility] Addendum 1 Entered: 02/06/2021-1201 The HPV test is negative for high risk types, test performed at [facility] [address]. 02/06/20211200 Addendum Signed____ RICCO ROBERSON (ASCP) 02/06/2021 [...] (ASCP) 01/30/2021 1126 ID Date Data Source [id number] 01/29/2021 10:00:00 AM EDT [facility] ([facility] Name Value Range Interpretation Code Description Data Beryl rce(s) Supporting Document(s) HPV Screen (High Risk Only) Laboratory test result [facility] ([facility] This nucleic acid amplification test det ects fourteen high- risk HPV types (16,18,31,33,35,39,45,51,52,56,58,59,66,68) without differentiation. Performed at: [facility] [place] [id number] Product Safety Consultant: Bouchra Metz MD, Phone: [phone] ID Date Data Source [id number] 01/16/2021 12:00:00 AM EDT [facility] Name Value Range Interpretation Code Description Data Beryl rce(s) Supporting Document(s) SARS-CoV2 Rapid Antigen Negative [facility] This lab was ordered by [facility] and reported by [facility]. ID Date Data Source [id number] 09/19/2020 10:37:00 AM EST [facility] ([facility]) Name Value Range Interpretation Code Description Data Beryl rce(s) Supporting Document(s) sars-cov-2 negative negative Sars-cov-2 SHEPHERD ([facility]) ID Date Data Source [id number] 09/19/2020 10:37:00 AM EST [facility] Name Value Range Interpretation Code Description Data Beryl rce(s) Supporting Document(s) SARS coronavirus 2 RdRp gene [Presence] in Respiratory specimen by KALYAN with probe detection Not detected [facility] This lab was ordered by [facility] and reported by [facility]. Procedure Social History Code Duration Value Status Description Data Source(s ) Smoking 03/29/2021 12:00:00 AM EDT Patient has never smoked co mpleted Patient has never smoked [facility] ([facility] Smoking 06/06/2020 12:00:00 AM EDT Never Smoker completed Never S moker eCW1 ([facility]) Smoking 06/06/2020 12:00:00 AM EDT Never Smoker completed Never S moker eCW1 ([facility]) Smoking 06/06/2020 12:00:00 AM EDT Never Smoker completed Never S moker eCW1 ([facility]) Vital Signs ID Date Data Source UNK [...] 98 % [facility] ([facility] [place] body weight 115 [lb_av] 115 [lb_av] MEDEN [...] 100 % [facility] ([facility] [place] body weight 115 [lb_av] 115 [lb_av] MEDEN T ([facility] Body mass index [...] /min [facility] ( [facility] [place] body weight 115 [lb_av] 115 [lb_av] MEDEN T ([facility] Body weight 142 [lb_av] 142 [lb_av] eCW1 ([facility]) Body height 63 [in_i] 63 [in_i] W1 ([facility]) Body mass index (BMI) [Ratio] 25.15 kg/m2 25.15 kg/m2 eCW1 ([facility]) Systolic blood pressure 122 mm[Hg] 122 mm[Hg] e CW1 ([facility]) Diastolic blood pressure 70 mm[Hg] 70 mm[Hg] eCW1 ([facility]) Patient Treatment Plan of Care Planned Activity Planned Date Details Description Data Source (s) Valery-BE 0.35 MG 06/06/2020 12:00:00 AM EDT eCW1 ([facility]) Valery-BE 0.35 MG 06/06/2020 12:00:00 AM EDT eCW1 ([facility]) Valery-BE 0.35 MG 06/06/2020 12:00:00 AM EDT eCW1 ([facility])
[2021-06-08 18:01] LABS: ACETAMINOPHEN LEVEL < 2.0 UG/ML (10.0-30.0); ALBUMIN 3.7 GM/DL (3.2-5.2); ALT/SGPT 15 U/L (12-78); BILIRUBIN,DIRECT 0.2 MG/DL (0.0-0.2); BILIRUBIN,TOTAL 0.9 MG/DL (0.2-1.0); BLOOD UREA NITROGEN 7 MG/DL (7-18); CALCIUM LEVEL 8.7 MG/DL (8.5-10.1); CARBON DIOXIDE LEVEL 25 MEQ/L (21-32); CHLORIDE LEVEL 108 MEQ/L (98-107); CREATININE FOR GFR 0.82 MG/DL (0.55-1.30); ETHYL ALCOHOL (ETHANOL) 0.003 % (0.000-0.010); GLOMERULAR FILTRATION RATE > 60.0 (>60); GLUCOSE, FASTING 127 MG/DL (70-100); POTASSIUM SERUM 3.8 MEQ/L (3.5-5.1); SALICYLATE LEVEL < 1.7 MG/DL (5.0-30.0); SODIUM LEVEL 140 MEQ/L (136-145); TOTAL PROTEIN 8.1 GM/DL (6.4-8.2)
--- NOTE | 2021-06-08 18:11 | REPVR ---
PROCEDURE INFORMATION: Exam: CT Head Without Contrast Exam date and time: 06/08/2021 5:16 PM Age: 25 years old Clinical indication: Altered mental status/memory loss; Additional info: AMS TECHNIQUE: Imaging protocol: Computed tomography of the head without contrast. Radiation optimization: All CT scans at this facility use at least one of these dose optimization techniques: automated exposure control; mA and/or kV adjustment per patient size (includes targeted exams where dose is matched to clinical indication); or iterative reconstruction. COMPARISON: No relevant prior studies available. FINDINGS: Brain: Normal. No hemorrhage. Unremarkable white matter. No mass effect. Cerebral ventricles: No ventriculomegaly. Paranasal sinuses: Visualized sinuses are unremarkable. No fluid levels. Mastoid air cells: Visualized mastoid air cells are well aerated. Bones/joints: No acute fracture. Soft tissues: Unremarkable. IMPRESSION: No acute intracranial abnormality. Electronically signed by: Cosmo Dobson On 06/08/2021 18:10:31 PM
== END 2021-06-08 17:36 | disposition left against medical advice (07) ==
LOC: M ED 15:21
DX: F29 Unspecified psychosis not due to a substance or known physiological condition (principal); Z53.9 Procedure and treatment not carried out, unspecified reason

== ENCOUNTER 2021-06-09 12:29 | Inpatient (IN) | payer OTHER ==
[~2021-06-09] VITALS: Ht 160 cm; Wt 54.5 kg
--- OUTSIDE RECORDS SUMMARY | 2021-06-09 12:37 | CCD ---
Author Author [facility] Organization [facility] Address Unknown Phone Unavailable Care Team Providers Care Theatre Manager Name Role Phone Kayla Morris Yuliet PA-C Unavailable Unavailabl e Petrancosta, Morris Yuliet PA-C Unavailable Unavailabl e Petrancosta, Morris Yuliet PA-C Unavailable Unavailabl e Petrancosta, Morris Yuliet PA-C Unavailable Unavailabl e Petrancosta, Morris Yuliet PA-C Unavailable Unavailabl e Petrancosta, Morris Yuliet PA-C Unavailable Unavailabl e Petrancosta, Morris Yuliet PA-C Unavailable Unavailabl e Petrancosta, Morris Yuliet PA-C Unavailable Unavailabl e Petrancosta, Morris Yuliet PA-C Unavailable Unavailabl e Petrancosta, Morris Yuliet PA-C Unavailable Unavailabl e Petrancosta, Morris Yuliet PA-C Unavailable Unavailabl e Petrancosta, Morris Yuliet PA-C Unavailable Unavailabl e Petrancosta, Morris Yuliet PA-C Unavailable Unavailabl e Petrancosta, Morris Yuliet PA-C Unavailable Unavailabl e Petrancosta, Morris Yuliet PA-C Unavailable Unavailabl e Petrancosta, Morris Yuliet PA-C Unavailable Unavailabl e Petrancosta, Morris Yuliet PA-C Unavailable Unavailabl e Petrancosta, Morris Yuliet PA-C Unavailable Unavailabl e Petrancosta, Morris Yuliet PA-C Unavailable Unavailabl e Petrancosta, Morris Yuliet PA-C Unavailable Unavailabl e Petrancosta, Morris Yuliet PA-C Unavailable Unavailabl e Petrancosta, Morris Yuliet PA-C Unavailable Unavailabl e Petrancosta, Morris Yuliet PA-C Unavailable Unavailabl e Petrancosta, Morris Yuliet PA-C Unavailable Unavailabl e Petrancosta, Morris Yuliet PA-C Unavailable Unavailabl e Fernando Nascimento MD Unavailable Unavailable Fernando Nascimento MD Unavailable Unavailable Azam, Fernando Rivera MD [...] Unavailable Azam, Fernando Rivera MD Unavailable Unavailable AzamFernando MD Unavailable Unavailable Fernando Nascimento MD Unavailable Unavailable Azam, Fernando Rivera MD [...] Unavailable Azam, Fernando Rivera MD Unavailable Unavailable AzamFernando MD Unavailable Unavailable Azam, Fernnado Rivera MD Unavailable Unavailable Azam, Fernando Rivera [...] Azam, Fernando Rivera MD Unavailable Unavailable Azam, Fernnado Rivera MD Unavailable Unavailable Azam, Fernando Rivera [...] Nicole MYERS Unavailable Unavailable Azam, A Nicole MYESR Unavailable Unavailable Azam, A Nicole MYERS Unavailable [...] is protected by Article 27-F of the [facility] Public Health law. If you continue you may have access to information: Regarding HIV / AIDS; Provided by facilities licensed or operated by the [facility] Office of Mental Health; or Provided by the [facility] Office for People With Developmental Disabilities. If such information is present, then the following [facility] mandated warning applies: This information has been [...] law may result in a fine or retirement sentence or both. A general authorization for the release of medical or other information is NOT sufficient authorization for further disc losure. Allergies and Adverse Reactions Type Description Substance Reaction Status Data Source(s ) Allergy to substance Allergy to substance Allergy to substance [place] ([facility]) Family History Family Member Name Family Member Gender Family Member Status Date o f Status Description Data Source(s) Unknown Unknown Problem MEDENT ([facility]) Unknown Unknown Problem MEDENT ([facility] Encounters Encounter Providers Location Date Indications Data Source(s ) Outpatient Attender: Nicole Nascimento MD Main Office 03/29/2021 10:15:0 0 AM EDT MED[facility] ([facility] Outpatient Attender: Nicole Nascimento MD Main Office 01/29/2021 09:30:0 0 AM EDT [facility] ([facility] Chuyita Jamison PA-C: [address] [place] [phone], Ph. Attender: Chuyita BLANCA - [facility] Medical 09/19/2020 12:00:00 AM EST [place] ([facility]) Outpatient Attender: Yuliet Garza PA-C Main Office 06/18/2020 02:30:00 PM EDT MEDENT ([facility] ( ESTOB) [facility] Est OB [address] [place] [address] 06/06/2020 12:00:00 AM EDT eCW1 ([facility]) Immunizations Vaccine Date Status Description Data Source(s) COVID-19 VACCINE Moderna 11/14/2020 12:00:00 AM EDT completed [place]SIIS Vaccine Series Complete: YESThis Data wa s Submitted to [facility] Via [employer]. COVID-19 VACCINE Moderna 10/17/2020 12:00:00 AM EST completed [place]SIIS Vaccine Series Complete: NOThis Data was Submitted to [facility] Via [employer]. New in 2012. IIV4 06/18/2020 02:46:00 PM [...] { tablet} active Valery-BE 0.35 MG eCW1 ([facility]) 0.35 mg 06/06/2020 12:00:00 AM EDT tablet [...] { tablet} active Valery-BE 0.35 MG eCW1 ([facility]) 0.35 mg 06/06/2020 12:00:00 AM EDT tablet [...] { tablet} active Valery-BE 0.35 MG eCW1 ([facility]) Insurance Providers Payer name Policy type / Coverage type Policy ID Covered constitution party ID Covered constitution party's relationship to patterson Policy Patterson Plan Information [facility] [id number] SP [id number] [facility] [id number] SP [id number] [facility] Maintenance [facility] ([facility] 00 [id number] Self [id number] [facility] ([facility] 00 [id number] Self [id number] [facility] ([facility]) 00 [id number] Self [id number] [facility] ([facility]) 00 [id number] Self [id number] [facility] Commercial [id number] Self [id number] [facility] O [id number] S [id number] [facility] CAPITAL DIST PHYS H O [id number] S [id number] CAPITAL DIST PHYSICIANS [facility] [id number] SP [id number] [facility] [id number] SP [id number] [facility] [id number] [facility] [id number] S [id number] Problems, Conditions, and Diagnoses No Information Surgeries/Procedures Procedure Description Date Indications Data Source(s) OFFICE OUTPATIENT VISIT 10 MINUTES 03/29/2021 12:00:00 AM EDT [facility] ([facility] OFFICE OUTPATIENT VISIT 15 MINUTES 01/29/2021 12:00:00 AM EDT MED[facility] ([facility] PERIODIC PREVENTIVE MED EST PATIENT 18-39 YRS 01/30/20 12:00:00 AM EDT [facility] ([facility] Results ID Date Data Source [id number] 01/29/2021 10:19:00 AM EDT [facility] ([facility] Name Value Range Interpretation Code Description Data Beryl rce(s) Supporting Document(s) Cytology Cervical or vaginal smear or scraping study Laboratory [place] t result MEDENT ([facility] Addendum 1 Entered: 02/06/2021-1201 The HPV test is negative for high risk types, test performed at [facility] [address]. 02/06/20211200 Addendum Signed____ RICCO ROBERSON (ASCP) 02/06/2021 120 SPECIMEN ADEQUACY: Satisfactory for evaluation CATEGORIZATION: Negative [...] (ASCP) 01/30/2021 1126 ID Date Data Source [id number] 01/29/2021 10:00:00 AM EDT [facility] ([facility] Name Value Range Interpretation Code Description Data Beryl rce(s) Supporting Document(s) HPV Screen (High Risk Only) Laboratory test result [facility] ([facility] This nucleic acid amplification test det ects fourteen high- risk HPV types (16,18,31,33,35,39,45,51,52,56,58,59,66,68) without differentiation. Performed at: RN - [facility] [address] [id number] Builder Beam: Bouchra Metz MD, Phone: [phone] ID Date Data Source [id number] 01/16/2021 12:00:00 AM EDT [facility]MA Name Value Range Interpretation Code Description Data Beryl rce(s) Supporting Document(s) SARS-CoV2 Rapid Antigen Negative [facility]MA This lab was ordered by [facility] and reported by [facility]. ID Date Data Source [id number] 09/19/2020 10:37:00 AM EST [place] ([facility]) Name Value Range Interpretation Code Description Data Beryl rce(s) Supporting Document(s) sars-cov-2 negative negative Sars-cov-2 [place] ([facility]) ID Date Data Source [id number] 09/19/2020 10:37:00 AM EST [facility] Name Value Range Interpretation Code Description Data Beryl rce(s) Supporting Document(s) SARS coronavirus 2 RdRp gene [Presence] in Respiratory specimen by KALYAN with probe detection Not detected [facility]SDOH This lab was ordered by [facility] and reported by [facility]. Procedure Social History Code Duration Value Status Description Data Source(s ) Smoking 03/29/2021 12:00:00 AM EDT Patient has never smoked co mpleted Patient has never smoked [facility] ([facility] Smoking 06/06/2020 12:00:00 AM EDT Never Smoker completed Never S moker eCW1 ([facility]) Smoking 06/06/2020 12:00:00 AM EDT Never Smoker completed Never S moker eCW1 ([facility]) Smoking 06/06/2020 12:00:00 AM EDT Never Smoker completed Never S moker eCW1 ([facility]) Vital Signs ID Date Data Source UNK [...] 98 % MEDENT ([facility] [place] body weight 115 [lb_av] 115 [lb_av] MEDEN [...] 100 % MEDENT ([facility] [place] body weight 115 [lb_av] 115 [lb_av] MEDEN [...] /min MEDENT ( [facility] [place] body weight 115 [lb_av] 115 [lb_av] MEDEN T ([facility] Body weight 142 [lb_av] 142 [lb_av] eCW1 ([facility]) Body height 63 [in_i] 63 [in_i] eCW1 ([facility]) Body mass index (BMI) [Ratio] 25.15 kg/m2 25.15 kg/m2 eCW1 ([facility]) Systolic blood pressure 122 mm[Hg] 122 mm[Hg] e CW1 ([facility]) Diastolic blood pressure 70 mm[Hg] 70 mm[Hg] eCW1 ([facility]) Patient Treatment Plan of Care Planned Activity Planned Date Details Description Data Source (s) Valery-BE 0.35 MG 06/06/2020 12:00:00 AM EDT eCW1 ([facility]) Valery-BE 0.35 MG 06/06/2020 12:00:00 AM EDT eCW1 ([facility]) Valery-BE 0.35 MG 06/06/2020 12:00:00 AM EDT eCW1 ([facility])
[2021-06-09 13:17] LABS: HEMATOCRIT 42.1 % (36.0-47.0); HEMOGLOBIN 13.8 g/dl (12.0-15.5); MEAN CORPUSCULAR HEMOGLOBIN 28.8 pg (27.0-33.0); MEAN CORPUSCULAR HGB CONC 32.8 g/dl (32.0-36.5); MEAN CORPUSCULAR VOLUME 87.9 fl (80.0-96.0); PLATELET COUNT, AUTOMATED 341 10^3/uL (150-450); RED BLOOD COUNT 4.79 10^6/uL (4.00-5.40); WHITE BLOOD COUNT 9.7 10^3/uL (4.0-10.0)
--- OUTSIDE RECORDS SUMMARY | 2021-06-09 13:33 | CCD ---
Author Author [facility] Organization [facility] Address Unknown Phone Unavailable Care Team Providers Care Body Bumper Name Role Phone Kayla Isabela Yuliet PA-C Unavailable Unavailabl e Petrancosta, Isabela Yuliet PA-C Unavailable Unavailabl e Petrancosta, Isabela Yuliet PA-C Unavailable Unavailabl e Petrancosta, Isabela Yuliet PA-C Unavailable Unavailabl e Petrancosta, Isabela Yuliet PA-C Unavailable Unavailabl e Petrancosta, Isabela Yuliet PA-C Unavailable Unavailabl e Petrancosta, Isabela Yuliet PA-C Unavailable Unavailabl e Petrancosta, Isabela Yuliet PA-C Unavailable Unavailabl e Petrancosta, Isabela Yuliet PA-C Unavailable Unavailabl e Petrancosta, Isabela Yuliet PA-C Unavailable Unavailabl e Petrancosta, Isabela Yuliet PA-C Unavailable Unavailabl e Petrancosta, Isabela Yuliet PA-C Unavailable Unavailabl e Petrancosta, Isabela Yuliet PA-C Unavailable Unavailabl e Petrancosta, Isabela Yuliet PA-C Unavailable Unavailabl e Petrancosta, Isabela Yuliet PA-C Unavailable Unavailabl e Petrancosta, Isabela Yuliet PA-C Unavailable Unavailabl e Petrancosta, Isabela Yuliet PA-C Unavailable Unavailabl e Petrancosta, Isabela Yuliet PA-C Unavailable Unavailabl e Petrancosta, Isabela Yuliet PA-C Unavailable Unavailabl e Petrancosta, Isabela Yuliet PA-C Unavailable Unavailabl e Petrancosta, Isabela Yuliet PA-C Unavailable Unavailabl e Petrancosta, Isabela Yuliet PA-C Unavailable Unavailabl e Petrancosta, Isabela Yuliet PA-C Unavailable Unavailabl e Petrancosta, Isabela Yuliet PA-C Unavailable Unavailabl e Petrancosta, Isabela Yuliet PA-C Unavailable Unavailabl e Fernando Nascimento [...] Unavailable Unavailable AzamFernando MD Unavailable Unavailable Azam, Fernando Rivera MD [...] is protected by Article 27-F of the [facility] Public Health law. If you continue you may have access to information: Regarding HIV / AIDS; Provided by facilities licensed or operated by the [facility] Office of Mental Health; or Provided by the [facility] Office for People With Developmental Disabilities. If such information is present, then the following [facility] mandated warning applies: This information has been [...] law may result in a fine or halfway sentence or both. A general authorization for the release of medical or other information is NOT sufficient authorization for further disc losure. Allergies and Adverse Reactions Type Description Substance Reaction Status Data Source(s ) Allergy to substance Allergy to substance Allergy to substance [place] ([facility]) Family History Family Member Name Family Member Gender Family Member Status Date o f Status Description Data Source(s) Unknown Unknown Problem MEDENT ([facility]) Unknown Unknown Problem MEDENT ([facility] Encounters Encounter Providers Location Date Indications Data Source(s ) Outpatient Attender: Nicole Nascimento MD Main Office 03/29/2021 10:15:0 0 AM EDT MEDENT ([facility] Outpatient Attender: Nicole Nascimento MD Main Office 01/29/2021 09:30:0 0 AM EDT [facility] ([facility] Chuyita Jamison PA-C: [address] [place] [phone], Ph. Attender: Chuyita BLANCA - [facility] Medical 09/19/2020 12:00:00 AM EST [place] ([facility]) Outpatient Attender: Yuliet Garza PA-C Main Office 06/18/2020 02:30:00 PM EDT MEDENT ([facility] ( ESTOB) [facility] Est OB [address] [place] [address] 06/06/2020 12:00:00 AM EDT eCW1 ([facility]) Immunizations Vaccine Date Status Description Data Source(s) COVID-19 VACCINE Moderna 11/14/2020 12:00:00 AM EDT completed [place]SIIS Vaccine Series Complete: YESThis Data wa s Submitted to [facility] Via [facility]en. COVID-19 VACCINE Moderna 10/17/2020 12:00:00 AM EST completed [place]SIIS Vaccine Series Complete: NOThis Data was Submitted to [facility] Via eeden. New in 2012. IIV4 06/18/2020 02:46:00 PM [...] active Valery-BE 0.35 MG eCW1 ([facility]) 0.35 mg 06/06/2020 12:00:00 AM EDT tablet [...] active Valery-BE 0.35 MG eCW1 ([facility]) 0.35 mg 06/06/2020 12:00:00 AM EDT tablet [...] active Valery-BE 0.35 MG eCW1 ([facility]) Insurance Providers Payer name Policy type / Coverage type Policy ID Covered republican ID Covered republican's relationship to patterson Policy Patterson Plan Information [facility] [id number] SP [id number] [facility] [id number] SP [id number] [facility] Maintenance [facility] ([facility]) 00 [id number] Self [id number] [facility] ([facility]) 00 [id number] Self [id number] [facility] ([facility]) 00 [id number] Self [id number] [facility] ([facility]) 00 [id number] Self [id number] [facility] Commercial [id number] Self [id number] [facility] O [id number] S [id number] [facility] CAPITAL DIST PHYS H O [id number] S [id number] CAPITAL DIST PHYSICIANS [facility] [id number] SP [id number] [facility] [id number] SP [id number] [facility] [id number] [facility] [id number] S [id number] Problems, Conditions, and Diagnoses No Information Surgeries/Procedures Procedure Description Date Indications Data Source(s) OFFICE OUTPATIENT VISIT 10 MINUTES 03/29/2021 12:00:00 AM EDT [facility] ([facility] OFFICE OUTPATIENT VISIT 15 MINUTES 01/29/2021 12:00:00 AM EDT [facility] ([facility] PERIODIC PREVENTIVE MED EST PATIENT 18-39 YRS 01/30/20 12:00:00 AM EDT [facility] ([facility] Results ID Date Data Source [id number] 01/29/2021 10:19:00 AM EDT [facility] ([facility] Name Value Range Interpretation Code Description Data Beryl rce(s) Supporting Document(s) Cytology Cervical or vaginal smear or scraping study Laboratory [place] t result MEDENT ([facility] Addendum 1 Entered: 02/06/2021-1201 The HPV test is negative for high risk types, test performed at [address] [address]. 02/06/20211200 Addendum Signed____ RICCO ROBERSON (ASCP) 02/06/2021 [...] (ASCP) 01/30/2021 1126 ID Date Data Source [id number] 01/29/2021 10:00:00 AM EDT [facility] ([facility] Name Value Range Interpretation Code Description Data Beryl rce(s) Supporting Document(s) HPV Screen (High Risk Only) Laboratory test result [facility] ([facility] This nucleic acid amplification test det ects fourteen high- risk HPV types (16,18,31,33,35,39,45,51,52,56,58,59,66,68) without differentiation. Performed at: RN - [facility] [address] [id number] Experimental Preflight Mechanic: Bouchra Metz MD, Phone: [phone] ID Date Data Source [id number] 01/16/2021 12:00:00 AM EDT [facility] Name Value Range Interpretation Code Description Data Beryl rce(s) Supporting Document(s) SARS-CoV2 Rapid Antigen Negative [facility]IA This lab was ordered by [facility] and reported by [facility]. ID Date Data Source [id number] 09/19/2020 10:37:00 AM EST [place] ([facility]) Name Value Range Interpretation Code Description Data Beryl rce(s) Supporting Document(s) sars-cov-2 negative negative Sars-cov-2 [place] ([facility]) ID Date Data Source [id number] 09/19/2020 10:37:00 AM EST [facility] Name Value Range Interpretation Code Description Data Beryl rce(s) Supporting Document(s) SARS coronavirus 2 RdRp gene [Presence] in Respiratory specimen by KALYAN with probe detection Not detected NYSDOH This lab was ordered by [facility] and reported by [facility]. Procedure Social History Code Duration Value Status Description Data Source(s ) Smoking 03/29/2021 12:00:00 AM EDT Patient has never smoked co mpleted Patient has never smoked [facility] ([facility] Smoking 06/06/2020 12:00:00 AM EDT Never Smoker completed Never S moker eCW1 ([facility]) Smoking 06/06/2020 12:00:00 AM EDT Never Smoker completed Never S moker eCW1 ([facility]) Smoking 06/06/2020 12:00:00 AM EDT Never Smoker completed Never S moker eCW1 ([facility]) Vital Signs ID Date Data Source UNK [...] 98 % [facility] ([facility] [place] body weight 115 [lb_av] 115 [lb_av] MEDEN [...] 100 % MEDENT ([facility] [place] body weight 115 [lb_av] 115 [lb_av] MEDEN [...] 148.25 [lb_av] 148.25 [lb_av] MEDEN T ([facility] Oxygen saturation in Arterial blood [...] /min MEDENT ( [facility] [place] body weight 115 [lb_av] 115 [lb_av] MEDEN T ([facility] Body weight 142 [lb_av] 142 [lb_av] eCW1 ([facility]) Body height 63 [in_i] 63 [in_i] eCW1 ([facility]) Body mass index (BMI) [Ratio] 25.15 kg/m2 25.15 kg/m2 eCW1 ([facility]) Systolic blood pressure 122 mm[Hg] 122 mm[Hg] e CW1 ([facility]) Diastolic blood pressure 70 mm[Hg] 70 mm[Hg] eCW1 ([facility]) Patient Treatment Plan of Care Planned Activity Planned Date Details Description Data Source (s) Valery-BE 0.35 MG 06/06/2020 12:00:00 AM EDT eCW1 ([facility]) Valery-BE 0.35 MG 06/06/2020 12:00:00 AM EDT eCW1 ([facility]) Valery-BE 0.35 MG 06/06/2020 12:00:00 AM EDT eCW1 ([facility])
[2021-06-09 13:49] LABS: HCG, SERUM QUALITATIVE NEGATIVE (NEGATIVE)
[2021-06-09 13:54] LABS: ACETAMINOPHEN LEVEL < 2.0 UG/ML (10.0-30.0); ALBUMIN 3.9 GM/DL (3.2-5.2); ALT/SGPT 15 U/L (12-78); BILIRUBIN,DIRECT 0.2 MG/DL (0.0-0.2); BILIRUBIN,TOTAL 1.1 MG/DL (0.2-1.0); BLOOD UREA NITROGEN 8 MG/DL (7-18); CARBON DIOXIDE LEVEL 26 MEQ/L (21-32); CHLORIDE LEVEL 109 MEQ/L (98-107); CREATININE FOR GFR 0.85 MG/DL (0.55-1.30); ETHYL ALCOHOL (ETHANOL) < 0.003 % (0.000-0.010); GLOMERULAR FILTRATION RATE > 60.0 (>60); GLUCOSE, FASTING 94 MG/DL (70-100); SALICYLATE LEVEL < 1.7 MG/DL (5.0-30.0); SODIUM LEVEL 141 MEQ/L (136-145); TOTAL PROTEIN 8.5 GM/DL (6.4-8.2)
[2021-06-09 14:50] LABS: AMPHETAMINES LEVEL URINE NEGATIVE (NEGATIVE); BARBITURATES URINE NEGATIVE (NEGATIVE); BENZODIAZEPINES URINE POSITIVE (NEGATIVE); CANNABINOIDS URINE POSITIVE (NEGATIVE); COCAINE METABOLITE URINE NEGATIVE (NEGATIVE); METHADONE URINE NEGATIVE (NEGATIVE); OPIATES URINE NEGATIVE (NEGATIVE); PHENCYCLIDINE URINE NEGATIVE (NEGATIVE)
[2021-06-09] MEDS ORDERED: LORazepam 1 MG TAB PO STA (16:17)
[2021-06-09] MEDS ORDERED: HOME MED LIST COMPLETE! XX SCH (18:55)
--- NOTE | 2021-06-09 19:58 | ECGEPIP ---
[facility] - ED Test Date: 2021-06-09 Pat Name: GERARDO FLORES Department: Room: - Gender: Female Inspector [employer]: BROOKE : 1995 Requested By: HILDA Berman Order Number: [id number] Reading MD: Eric Garcia Measurements Intervals Weed Rate: 72 P: 62 NH: 116 QRS: 18 QRSD: 80 T: 6 QT: 384 QTc: 420 Interpretive Statements Normal sinus rhythm with sinus arrhythmia NONSPECIFIC T WAVE ABNORMALITY(S) NO PRIORS FOR COMPARISON Electronically Signed on 06-09-2021 19:58:40 EDT by Eric Garcia
[2021-06-10] MEDS ORDERED: SERTRALINE HCL 50 MG TAB PO SCH (09:00)
[2021-06-10 12:28] LABS: RSV AMPLIFICATION NEGATIVE (NEGATIVE)
[2021-06-10] MEDS ORDERED: MOM 30ML SUSPENSION UDC PO PRN (13:50)
[2021-06-10] MEDS ORDERED: OLANZapine 5 MG TAB PO PRN (13:50)
[2021-06-10] MEDS ORDERED: MAALOX 30 ML SUSP *UDC PO PRN (13:50)
[2021-06-10] MEDS ORDERED: ACETAMINOPHEN TAB 650MG DOSE (2X325MG) PO PRN (13:50)
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
--- OUTSIDE RECORDS SUMMARY | 2021-06-10 14:07 | CCD ---
Author Author [facility] Organization [facility] Address Unknown Phone Unavailable Care Team Providers Care Rn Behavioral Health Name Role Phone Kayla Winchester Yuliet PA-C Unavailable Unavailabl e Petrancosta, Winchester Yuliet PA-C Unavailable Unavailabl e Petrancosta, Winchester Yuliet PA-C Unavailable Unavailabl e Petrancosta, Winchester Yuliet PA-C Unavailable Unavailabl e Petrancosta, Winchester Yuliet PA-C Unavailable Unavailabl e Petrancosta, Winchester Yuliet PA-C Unavailable Unavailabl e Petrancosta, Winchester Yuliet PA-C Unavailable Unavailabl e Petrancosta, Winchester Yuliet PA-C Unavailable Unavailabl e Petrancosta, Winchester Yuliet PA-C Unavailable Unavailabl e Petrancosta, Winchester Yuliet PA-C Unavailable Unavailabl e Petrancosta, Winchester Yuliet PA-C Unavailable Unavailabl e Petrancosta, Winchester Yuliet PA-C Unavailable Unavailabl e Petrancosta, Winchester Yuliet PA-C Unavailable Unavailabl e Petrancosta, Winchester Yuliet PA-C Unavailable Unavailabl e Petrancosta, Winchester Yuliet PA-C Unavailable Unavailabl e Petrancosta, Winchester Yuliet PA-C Unavailable Unavailabl e Petrancosta, Winchester Yuliet PA-C Unavailable Unavailabl e Petrancosta, Winchester Yuliet PA-C Unavailable Unavailabl e Petrancosta, Winchester Yuliet PA-C Unavailable Unavailabl e Petrancosta, Winchester Yuliet PA-C Unavailable Unavailabl e Petrancosta, Winchester Yuliet PA-C Unavailable Unavailabl e Petrancosta, Winchester Yuliet PA-C Unavailable Unavailabl e Petrancosta, Winchester Yuliet PA-C Unavailable Unavailabl e Petrancosta, Winchester Yuliet PA-C Unavailable Unavailabl e Petrancosta, Winchester Yuliet PA-C Unavailable Unavailabl e Fernando Nascimento [...] A Nicole MYERS Unavailable Unavailable Azam, A Nciole MYERS Unavailable Unavailable Azam, Fernando Rivera MD [...] M Chuyita PA Unavailable Unavailable Scordo, M Cuhyita PA Unavailable Unavailable Scordo, M Chuyita PA [...] is protected by Article 27-F of the [facility] Public Health law. If you continue you may have access to information: Regarding HIV / AIDS; Provided by facilities licensed or operated by the [facility] Office of Mental Health; or Provided by the [facility] Office for People With Developmental Disabilities. If such information is present, then the following [facility] mandated warning applies: This information has [...] law may result in a fine or longterm sentence or both. A general authorization for the release of medical or other information is NOT sufficient authorization for further disc losure. Allergies and Adverse Reactions Type Description Substance Reaction Status Data Source(s ) Allergy to substance Allergy to substance Allergy to substance [facility] ([facility]) Family History Family Member Name Family Member Gender Family Member Status Date o f Status Description Data Source(s) Unknown Unknown Problem [facility] ([facility]) Unknown Unknown Problem [facility] Encounters Encounter Providers Location Date Indications Data Source(s ) Outpatient Attender: Nicole Nascimento MD Main Office 03/29/2021 10:15:0 0 AM EDT [facility] ([facility] Outpatient Attender: Nicole Nascimento MD Main Office 01/29/2021 09:30:0 0 AM EDT [facility] ([facility] Chuyita Jamison PA-C: [address] [place] [id number], Ph. Attender: Chuyita BLANCA - [facility] Medical 09/19/2020 12:00:00 AM EST [facility] ([facility]) Outpatient Attender: Yuliet Garza PA-C Main Office 06/18/2020 02:30:00 PM EDT MED[facility] ([facility] ( ESTOB) [facility] OB [address] [place] [address] 06/06/2020 12:00:00 AM EDT eCW1 ([facility]) Immunizations Vaccine Date Status Description Data Source(s) COVID-19 VACCINE Moderna 11/14/2020 12:00:00 AM EDT completed [place] Vaccine Series Complete: YESThis Data wa s Submitted to [facility] Via [employer]. COVID-19 VACCINE Moderna 10/17/2020 12:00:00 AM EST completed [facility] Vaccine Series Complete: NOThis Data was Submitted to [facility] Via [employer]. New in 2012. IIV4 06/18/2020 02:46:00 PM [...] { tablet} active Valery-BE 0.35 MG eCW1 ([facility]) 0.35 mg 06/06/2020 12:00:00 AM EDT tablet [...] { tablet} active Valery-BE 0.35 MG eCW1 ([facility]) 0.35 mg 06/06/2020 12:00:00 AM EDT tablet [...] { tablet} active Valery-BE 0.35 MG eCW1 ([facility]) Insurance Providers Payer name Policy type / Coverage type Policy ID Covered republican ID Covered republican's relationship to patterson Policy Patterson Plan Information [facility] [id number] SP [id number] [facility] [id number] SP [id number] [facility] Maintenance [facility] ([facility]) 00 [id number] Self [id number] [facility] ([facility]) 00 [id number] Self [id number] [facility] ([facility]) 00 [id number] Self [id number] [facility] ([facility]) 00 [id number] [facility] Commercial [id number] Self [id number] [facility] O [id number] S [id number] [facility] H O [id number] S [id number] [facility] [id number] SP [id number] [facility] [id number] SP [id number] [facility] [id number] [address] [facility] [id number] S [id number] Problems, Conditions, and Diagnoses No Information Surgeries/Procedures Procedure Description Date Indications Data Source(s) OFFICE OUTPATIENT VISIT 10 MINUTES 03/29/2021 12:00:00 AM EDT [facility] ([facility] OFFICE OUTPATIENT VISIT 15 MINUTES 01/29/2021 12:00:00 AM EDT [facility] ([facility] PERIODIC PREVENTIVE MED EST PATIENT 18-39 YRS 01/30/20 12:00:00 AM EDT [facility] ([facility] Results ID Date Data Source [id number] 01/29/2021 10:19:00 AM EDT [facility] ([facility] Name Value Range Interpretation Code Description Data Beryl rce(s) Supporting Document(s) Cytology Cervical or vaginal smear or scraping study Laboratory [place] t result [facility] ([facility] Addendum 1 Entered: 02/06/2021-1201 The HPV test is negative for high risk types, test performed at [facility] [address]. 02/06/20211200 Addendum Signed____ RICCO ROBERSON (ASCP) 02/06/2021 [...] (ASCP) 01/30/2021 1126 ID Date Data Source [id number] 01/29/2021 10:00:00 AM EDT [facility] ([facility] Name Value Range Interpretation Code Description Data Beryl rce(s) Supporting Document(s) HPV Screen (High Risk Only) Laboratory test result [facility] ([facility] This nucleic acid amplification test det ects fourteen high- risk HPV types (16,18,31,33,35,39,45,51,52,56,58,59,66,68) without differentiation. Performed at: RN - [facility] [address] [id number] Compliance Mgr: Bouchra Metz MD, Phone: [phone] ID Date Data Source [id number] 01/16/2021 12:00:00 AM EDT [facility] Name Value Range Interpretation Code Description Data Beryl rce(s) Supporting Document(s) SARS-CoV2 Rapid Antigen Negative [facility] This lab was ordered by [facility] and reported by [facility]. ID Date Data Source [id number] 09/19/2020 10:37:00 AM EST [facility] ([facility]) Name Value Range Interpretation Code Description Data Beryl rce(s) Supporting Document(s) sars-cov-2 negative negative Sars-cov-2 [place] ([facility]) ID Date Data Source [id number] 09/19/2020 10:37:00 AM EST [facility] Name Value Range Interpretation Code Description Data Beryl rce(s) Supporting Document(s) SARS coronavirus 2 RdRp gene [Presence] in Respiratory specimen by KALYAN with probe detection Not detected [facility] This lab was ordered by [facility] and reported by [facility]. Procedure Social History Code Duration Value Status Description Data Source(s ) Smoking 03/29/2021 12:00:00 AM EDT Patient has never smoked co mpleted Patient has never smoked [facility] ([facility] Smoking 06/06/2020 12:00:00 AM EDT Never Smoker completed Never S moker eCW1 ([facility]) Smoking 06/06/2020 12:00:00 AM EDT Never Smoker completed Never S moker eCW1 ([facility]) Smoking 06/06/2020 12:00:00 AM EDT Never Smoker completed Never S moker eCW1 ([facility]) Vital Signs ID Date Data Source [id number] [...] 98 % [facility] ([facility] [place] body weight 115 [lb_av] 115 [lb_av] MEDEN [...] 100 % [facility] ([facility] [place] body weight 115 [lb_av] 115 [lb_av] MEDEN T ([facility] Body mass index (BMI) [...] /min [facility] ( [facility] [place] body weight 115 [lb_av] 115 [lb_av] MEDEN T ([facility] Body weight 142 [lb_av] 142 [lb_av] eCW1 ([facility]) Body height 63 [in_i] 63 [in_i] eCW1 ([facility]) Body mass index (BMI) [Ratio] 25.15 kg/m2 25.15 kg/m2 eCW1 ([facility]) Systolic blood pressure 122 mm[Hg] 122 mm[Hg] e CW1 ([facility]) Diastolic blood pressure 70 mm[Hg] 70 mm[Hg] eCW1 ([facility]) Patient Treatment Plan of Care Planned Activity Planned Date Details Description Data Source (s) Valery-BE 0.35 MG 06/06/2020 12:00:00 AM EDT eCW1 ([facility]) Valery-BE 0.35 MG 06/06/2020 12:00:00 AM EDT eCW1 ([facility]) Valery-BE 0.35 MG 06/06/2020 12:00:00 AM EDT eCW1 ([facility])
[2021-06-10 17:54] VITALS: BP 150/88
[2021-06-10] MEDS: ARIPiprazole 10 MG TAB PO SCH (20:30)
[2021-06-10] MEDS: traZODone 50 MG TAB PO PRN (20:30)
[2021-06-10] MEDS ORDERED: ARIPiprazole 10 MG TAB PO SCH (21:00)
[2021-06-11 06:43] VITALS: BP 126/72
--- NOTE | 2021-06-11 13:23 | CR.PDOC ---
General Date of Consultation: Jun 11, 2021 Attending Physician: Elvira Barrientos MD Consultation MEDICAL CONSULT HISTORY OF PRESENT ILLNESS: Patient is a 25 y/o F with no significant PMH admitted to [facility] for unspecified psychotic disorder. According to notes from emergency room and admission provider the patient had been having auditory hallucinations with bizarre behavior at home. She is recorded to have consumed 1 THC gummy prior to this occurring. UDS pos for benzodiazepine, Other noted issues include paranoia, anhedonia, insomnia. She was later admitted to the behavioral health unit for further treatment and evaluation. On exam by myself the patient denied any of the above. She denies auditory or visual hallucinations, depression, anxiety, loss of interest in things she would normally enjoy, decreased appetite. REVIEW OF SYSTEMS: CONSTITUTIONAL: Denies lack of energy, unexplained weight gain or weight loss, loss of appetite, fever, night sweats EYES: Denies eye drainage, eye pain, visual changes, dry/irritated eye EARS, NOSE, MOUTH, THROAT: Denies difficulty hearing, ringing in ears, mouth sores, loose teeth, sore throat, facial numbness or pain NECK: Denies swollen glands CARDIOVASCULAR: Denies irregular heartbeat, racing heart, chest pains, swelling of feet or legs, pain in legs with walking RESPIRATORY: Denies shortness of breath, night sweats, wheezing, sputum production, oxygen at home, coughing up blood, cough lasting > 1 month GASTROINTESTINAL: Denies abdominal pain, constipation, bloody stool, diarrhea, heartburn, nausea, vomiting GENITOURINARY: Denies painful urination, bloody urine, frequent urination, urgency, leaking urine, impotence MUSCULOSKELETAL: Denies joint pain, muscle pain, leg swelling INTEGUMENTARY: Denies rash, itching, new skin lesion, change in existing skin lesion, hair loss or increase, breast changes. NEUROLOGICAL: Denies headaches, dizziness, difficulty walking, numbness or tingling PSYCHIATRIC: Denies depression, anxiety, recurrent bad thoughts, mood swings, hallucinations PAST MEDICAL HISTORY: Spontaneous rupture of membranes PAST SURG HX: None FAMILY HISTORY: None PAST SOCIAL HISTORY: Denies alcohol, tobacco or illicit drug use. She is employed as an RN. She lives with her family locally. She has a primary care provider but does not follow with behavioral health. ALLERGIES: Please see below. HOME MEDICATIONS: Please see below. PHYSICAL EXAMINATION: VS: Stable, see below CONSTITUTIONAL: No acute distress, resting comfortably, AAO x 3 EYES: PERRLA, EOM intact HENT, MOUTH: Normocephalic, atraumatic, moist mucous membranes NECK: SUPPLE, no JVD, no lymphadenopathy, no carotid bruit CV: Regular rate and rhythm, S1S2 normal, no murmurs/rubs/gallops RESPIRATORY: Clear to auscultation bilaterally, no rales/rhonchi/wheezes GI: BS positive in 4 quadrants, soft, nontender, nondistended, no rebound or guarding, no organomegaly : Deferred MUSCULOSKELETAL: Normal ROM. No cyanosis, clubbing, swelling, joint deformity, extremity edema INTEGUMENTARY: Intact, no rashes, no lesions, no erythema NEUROLOGIC: Cranial Nerves II-XII are intact, no focal deficits PSYCHIATRIC: Mood and affect are normal LABORATORY DATA: Please see below IMAGING: None ASSESSMENT: 25-year-old female admitted for unspecified psychotic disorder to inpatient mental health. PLAN: Unspecified psychotic disorder -Plan per psychiatry team DISPOSITION: Thank you currently for this consult. At this time we'll sign off but if we are needed in the future please do not hesitate to contact us here Vital Signs/I&O Vital Signs Date Time Temp Pulse Resp B/P (MAP) Pulse Ox O2 Delivery O2 Flow Rate FiO2 06/11/21 06:43 98.3 123 20 126/72 (90) 96 Room Air Allergies Coded Allergies: No Known Allergies (Unverified , 09/17/17) NONE Home Medications No Active Prescriptions or Reported Meds Elvira Barrientos MD Jun 11, 2021 13:22
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
[2021-06-11] MEDS ORDERED: TRAZ-252 PO (16:54)
[2021-06-11 19:15] VITALS: BP 130/94
[2021-06-11] MEDS: traZODone 50 MG TAB PO PRN (20:29)
[2021-06-11] MEDS: ARIPiprazole 10 MG TAB PO SCH (20:29)
[2021-06-12 06:38] VITALS: BP 138/92
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
== END 2021-06-12 13:42 | disposition home or self-care (01) | DRG 885 ==
LOC: M ED 12:29 → M ED INP 06-10 13:47 → M PSY 06-10 16:38
PROVIDERS: ADMIT Student in an Organized Health Care Education/Training Program; ATTEND Psychiatry & Neurology Psychiatry
DX: F29 Unspecified psychosis not due to a substance or known physiological condition (principal); G47.00 Insomnia, unspecified; Z56.3 Stressful work schedule; Z20.822 Contact with and (suspected) exposure to COVID-19

== ENCOUNTER → 2021-08-22 | Outpatient (REF) ==
[~2021-08-22] MED LIST changes: +TRAZ-252 PO
== END ==
LOC: M EMP 14:38
PROVIDERS: ATTEND Family Medicine
DX: Z11.52 Encounter for screening for COVID-19 (principal)

== ENCOUNTER → 2021-08-25 | Outpatient (REF) ==
[2021-08-25 16:24] LABS: RSV AMPLIFICATION NEGATIVE (NEGATIVE)
== END ==
LOC: M EMP 14:47
PROVIDERS: ATTEND Family Medicine
DX: Z20.828 Contact with and (suspected) exposure to other viral communicable diseases (principal)

== ENCOUNTER → 2021-08-27 | Outpatient (REF) | LOC: M EMP 10:03 | PROVIDERS: ATTEND Family Medicine | DX: Z20.822 Contact with and (suspected) exposure to COVID-19 (principal) ==